=== PATIENT | female | born 1950 | race Caucasian/White ===

== ENCOUNTER 2016-09-23 05:41 | Inpatient (IN) | payer OTHER ==
--- NOTE | 2016-09-16 12:30 | PAT Medication Instructions ---
Service Date Sep 16, 2016. Current Home Medication List Aspirin (Aspirin Ec), 81 MG PO QAM Atorvastatin (Lipitor), 10 MG PO HS Fish Oil (Jeffers-3), 1 CAP PO QAM Multivitamin (Multivitamin), 1 TAB PO QAM Ranitidine (Zantac), 150 MG PO PRN PRN for ACID REFLUX Medication Instructions For Your Scheduled Surgery - Hold the following medications 1 week prior to surgery: Fish Oil (Jeffers-3), 1 CAP PO QAM - Hold the following medications the morning of surgery: Multivitamin (Multivitamin), 1 TAB PO QAM - Take the following medications the morning of surgery with a sip of water OTHERWISE NOTHING TO EAT OR DRINK AFTER MIDNIGHT: Aspirin (Aspirin Ec), 81 MG PO QAM Ranitidine (Zantac), 150 MG PO PRN PRN for ACID REFLUX - Take the following medications as scheduled the night before surgery: Atorvastatin (Lipitor), 10 MG PO HS If you have any questions please call us at [phone] or [phone] or [phone]
[2016-09-16 12:32] LABS: URINE APPEARANCE CLEAR (CLEAR); URINE BILIRUBIN NEG (NEG); URINE COLOR YELLOW; URINE NITRITE NEG (NEG); URINE PH 5.5 (4.5-7.5); UROBILINOGEN NEG (NEG)
[2016-09-16 12:33] LABS: MANUAL MICROSCOPIC REQUIRED? NO; REVIEW REQ? NO
[2016-09-16 12:33] LABS: BASO % 0.6 %; BASO ABS # 0.03 K/uL (0-0.2); COMPLETE YES; HEMATOCRIT 42.6 % (37-47); LYMPH % 32.9 %; LYMPH ABS # 1.71 K/uL (1.2-3.4); MEAN CELL VOLUME 95.1 fL (80-100); MEAN CORPUSCULAR HEMOGLOBIN 32.6 pg (25-34); MEAN CORPUSCULAR HGB CONC 34.3 g/dl (32-36); MEAN PLATELET VOLUME 10.2 fL (7.4-10.4); MONO % 7.9 %; NEUT % 53.6 %; PLATELET COUNT 310 K/uL (130-400); RED BLOOD COUNT 4.48 M/uL (4.2-5.4); WHITE BLOOD COUNT 5.19 K/uL (4.8-10.8)
[2016-09-16 12:41] LABS: PROTHROMBIN TIME (PATIENT) 10.6 SECONDS (9.0-12.0)
[2016-09-16 12:50] LABS: POTASSIUM 4.4 mmol/L (3.5-5.1)
--- NOTE | 2016-09-16 13:11 | DIAGNOSTIC IMAGING REPORT ---
CHEST 2 VIEWS ROUTINE CLINICAL HISTORY: Preoperative chest COMPARISON STUDY: No previous studies for comparison. FINDINGS: There is a calcified granuloma at the left lung base. There is minimal left basilar atelectasis. There are bilateral axillary calcifications. The heart is normal in size. There is no failure. There are no pleural effusions. There is no focal pulmonary consolidation.[ IMPRESSION: No active disease in the chest. Electronically signed by: Jason Sosa M.D. 09/16/2016 1:10 PM Dictated Date/Time: 09/16/2016 1:09 PM
--- NOTE | 2016-09-22 19:06 | HISTORY & PHYSICAL EXAMINATION ---
DATE OF ADMISSION: 09/23/2016 HISTORY OF PRESENT ILLNESS: The patient presents as a very pleasant 66-year-old white female with complaints of ongoing pain, attributable to her left knee. She presents for left total knee arthroplasty. She has failed attempts at conservative management including physical therapy, anti-inflammatories, relative rest, activity modification, viscosupplementation, corticosteroid injections, presents for total knee arthroplasty after failing all other attempts at conservative management. The patient understands the risks and complications and elects to proceed forward with left total knee arthroplasty. She is a 66-inch, 180-pound white female and 66 years of age. PAST MEDICAL HISTORY: Significant for hypercholesterolemia, osteoarthritis of the spine, acid reflux. Otherwise unremarkable. See history of present illness for pertinent positives. FAMILY HISTORY: Otherwise unremarkable and noncontributory. SOCIAL HISTORY: The patient denies history of smoking, alcohol use or recreational drug use. The patient does relate quitting smoking 1 year prior. PAST SURGICAL HISTORY: Significant for tubal ligation, right knee meniscal repair. ALLERGIES: None. MEDICATIONS: Include Lipitor 20 mg p.o. daily, multivitamin, aspirin 81 mg p.o. daily. PHYSICAL EXAMINATION: GENERAL: Reveals a very pleasant 66-year-old white female who presents with the above complaints of ongoing pain, attributable to her left knee. She has failed attempts at conservative management. She previously underwent arthroscopy 1 year prior for partial meniscectomy. She has complaints of ongoing pain about her knee which has been nonresponsive. X-ray revealed there to be evidence of progressive DJD. She has failed attempts at conservative management and presents for total knee arthroplasty. HEENT: Otherwise unremarkable, atraumatic, normocephalic. HEART: Regular at 70 beats per minute. No murmurs noted. LUNGS: Clear. No rales, rhonchi, or wheezes noted. ABDOMEN: Soft, nontender, nondistended. Bowel sounds are present in all 4 quadrants. RECTAL: No rectal examination was performed. MUSCULOSKELETAL: She had left knee degenerative joint disease. PLAN: Left total knee arthroplasty, postoperative pain management, DVT prophylaxis, antibiotics as necessary.
[~2016-09-23] VITALS: Ht 170.2 cm; Wt 88.5 kg
[2016-09-23] VITALS (10 sets, daily range): BP systolic 95–132; BP diastolic 64–94; PULSE 61–93; TEMP 36.4–36.7; O2SAT 88–97; Ht 170.2 cm; Wt 88.5 kg
[~2016-09-23 05:41] MED LIST: ASPI81TA28 PO; ATOR10TA82 PO; MULT-506 PO; OMEG10007 PO; ZNTT/150 PO
[2016-09-23] MEDS ORDERED: CeleBREX 200 MG CAP PO SCH (06:00)
[2016-09-23] MEDS ORDERED: FAMOTIDINE 20 MG TAB PO SCH (06:00)
[2016-09-23] MEDS ORDERED: DEXAMETHASONE 4 MG TAB PO SCH (06:00)
[2016-09-23] MEDS ORDERED: GABAPENTIN 300 MG CAP PO SCH (06:00)
[2016-09-23] MEDS ORDERED: CEFAZOLIN 2000 MG/60 ML D5W 60 ML IV SCH (06:00)
[2016-09-23] MEDS ORDERED: METOCLOPRAMIDE HCL 10 MG TAB PO SCH (06:00)
[2016-09-23] MEDS ORDERED: ROPIVACAINE 5MG/ML 30 ML 150 MG, BUPIVACAINE/EPINEPHR 0.5% MPF 30 ML, KETOROLAC TROMETH... INFIL SCH ×7 (06:00)
[2016-09-23] MEDS ORDERED: PREGABALIN 75 MG CAP PO SCH (06:00)
[2016-09-23] MEDS ORDERED: LACTATED RINGER'S 1000ML 1,000 ML IV SCH (06:00)
[2016-09-23] MEDS ORDERED: ACETAMINOPHEN 500 MG TAB PO SCH (06:00)
[2016-09-23] MEDS ORDERED: LACTATED RINGER'S 1000ML 500 ML IV ONE (06:00)
[2016-09-23] MEDS ORDERED: LACTATED RINGER'S 1000ML IV SCH (06:00)
[2016-09-23] MEDS ORDERED: BUPIVACAINE 0.5 % 5 MG/1 ML PF 10ML VIAL ONE (06:48)
--- NOTE | 2016-09-23 06:52 | History & Physical Bridge Note ---
H&P Re-Evaluation Bridge Note: I have examined the patient, reviewed the History & Physical and in the interval since the performance of the History & Physical I have noted the following changes of clinical significance: No changes noted
[2016-09-23] MEDS ORDERED: ONDANSETRON INJ 2 MG/ML 2 ML VIAL ONE (06:53)
[2016-09-23] MEDS ORDERED: MIDAZOLAM HCL 1 MG/ML 2ML VIAL ONE (06:53)
[2016-09-23] MEDS ORDERED: FENTANYL CITRATE INJ 50 MCG/1 ML 2 ML VIAL ONE (06:53)
[2016-09-23] MEDS ORDERED: PROPOFOL IV EMULSION 10 MG/ML 20 ML VIAL IV ONE (06:53)
[2016-09-23] MEDS ORDERED: ORTHO JOINT ANESTHETIC ONE (07:12)
[2016-09-23] MEDS ORDERED: POVIDONE-IODINE OP SOLN 30 ML BTL ONE (07:12)
[2016-09-23] MEDS ORDERED: BACITRACIN 50000 UNIT VIAL ONE (07:13)
[2016-09-23] MEDS: TRANEXAMIC ACID INJ 1,000 MG in SODIUM CHLORIDE 0.9% 100ML 100 ML IV SCH ×2 (07:43→12:52)
[2016-09-23] MEDS ORDERED: ATROPINE SULFATE 0.1 MG/ML 5ML SYR IV PRN (08:00)
[2016-09-23] MEDS ORDERED: FENTANYL CITRATE INJ 50 MCG/1 ML 2 ML VIAL IV PRN (08:00)
[2016-09-23] MEDS ORDERED: EpHEDrine SULFATE INJ 50 MG/ML AMP IV PRN (08:00)
[2016-09-23] MEDS ORDERED: ONDANSETRON INJ 2 MG/ML 2 ML VIAL IV PRN (08:00)
[2016-09-23] MEDS ORDERED: MoRPHine SULFATE 10 MG/ML CARP/VIAL IV PRN ×2 (08:00→12:30)
[2016-09-23] MEDS ORDERED: MEPERIDINE HCL 25 MG/ML CARP IV PRN (08:00)
[2016-09-23] MEDS ORDERED: PHENYLEPHRINE HCL INJ 10 MG/ML VIAL ONE (08:16)
--- NOTE | 2016-09-23 08:58 | [facility] Post Operative Brief Note ---
Immediate Operative Summary Operative Date Sep 23, 2016. Pre-Operative Diagnosis LEFT KNEE JOINT DEGENERATIVE JOINT DISEASE Post-Operative Diagnosis SAME PREOP Procedure(s) Performed LEFT TOTAL KNEE ARTHROPLASTY Surgeon DR. JAIMES Malt Specifications Control Assistant Surgeon(s) NATE JULES PA-C Estimated Blood Loss 5 cc Findings severe djd lt knee Specimens A: LEFT KNEE BONE AND TISSUE Complication(s) None Disposition Recovery Room / PACU
--- NOTE | 2016-09-23 09:26 | OPERATIVE REPORT ---
DATE OF OPERATION: 09/23/2016 PREOPERATIVE DIAGNOSIS: Severe end-stage tricompartmental degenerative joint disease left knee. POSTOPERATIVE DIAGNOSIS: Same. PROCEDURE: Left total knee arthroplasty utilizing Gonzales \T\ Nephew nonblock Journey II total knee arthroplasty size 6 femur, 5 tibia, 9 poly, 32 oval patella. SURGEON: Dr. Jimenez. DRAFTER APPRENTICE: Presley Craven PA-C who was necessary for prepping, draping, retraction, wound closure of deep fascia, subQ and skin and was necessary for the case. ESTIMATED BLOOD LOSS: 5 mL. COMPLICATIONS: None. HISTORY OF PRESENT ILLNESS: The patient presents as a very pleasant 66-year-old white female with the above complaints. She has been nonresponsive to conservative therapy and after thorough discussion regarding risks, complications, failing attempts at viscosupplementation, corticosteroid injections, relative rest, activity modification decision has been made to proceed forward with total knee arthroplasty. OPERATION AND FINDINGS: PROCEDURE: The patient was properly prepped and draped in supine position for total knee arthroplasty after identifying the appropriate surgical site. An anterior midline incision was made through the subcutaneous tissues down to the region of the extensor mechanism. A medial parapatellar incision was subsequently made. Meticulous hemostasis was obtained and performed at all times. The patella having been subluxed lateralward, medial and lateral meniscal remnants were excised. The patellar cut was then initially made and was sized to the appropriate size. After subluxing the tibia forward the appropriate meniscal fragments having been removed the distal femur was then cut first utilizing a Gonzales \T\ Nephew block. The distal femoral cuts and chamfer cuts were all made under direct visualization and the proximal tibial osteotomy cut was also made utilizing Gonzales \T\ Nephew blocks and checked with an extramedullary guide. The appropriate trial components on the femur and tibia were placed. Appropriate trial spacers were used to check flexion and extension gaps. With flexion and extension gaps being equal, the components were then subsequently after thorough irrigation and debridement lavage components were then subsequently cemented in the following order: femur, tibia and patella. Exparel was used for intraoperative anesthesia, the medial parapatellar incision was closed utilizing #1 Vicryl, subQ was closed with 2-0 Vicryl, skin was closed with skin clips. A sterile compression dressing was placed. The patient was taken to recovery room in stable condition. No complications. Due to the complex nature of the procedure, the entire surgery was performed with the operational assistance of Presley Craven PA-C. The resident programs assistant, under direct supervision, was involved in the actual performance of all aspects of the surgical procedure including hemostasis, tissue retraction and incision, instrument management, patient positioning, and wound closure. I attest to the content of the Intraoperative Record and any orders documented therein. Any exceptio ns are noted below.
[2016-09-23] MEDS ORDERED: ZOLPIDEM TARTRATE 5 MG TAB PO PRN (09:45)
[2016-09-23] MEDS ORDERED: MAGNESIUM HYDROXIDE SUSP 30 ML UDC PO PRN (09:45)
[2016-09-23] MEDS ORDERED: BISACODYL 10 MG SUPP PR PRN (09:45)
[2016-09-23] MEDS ORDERED: MoRPHine SULFATE 2 MG/ML CARP IV PRN ×2 (09:45→12:30)
[2016-09-23] MEDS ORDERED: ALUMINUM/MAGNESIUM/SIMETH (MAALOX MAX) 30 ML UDC PO PRN (09:45)
[2016-09-23] MEDS ORDERED: OXYCODONE HCL IR 5 MG TAB (IMMEDIATE RELEASE) PO PRN (09:45)
[2016-09-23] MEDS ORDERED: DiphenhydrAMINE HCL 50 MG/ML VIAL IV PRN (09:45)
--- NOTE | 2016-09-23 10:27 | Anesthesiology Progress Note ---
Anesthesia Post Op Note Date & Time Sep 23, 2016 at 10:27 Vital Signs Pain Intensity: 0 Vital Signs Past 12 Hours Date Time Temp Pulse Resp B/P Pulse Ox O2 Delivery O2 Flow Rate FiO2 09/23/16 10:20 84 18 102/74 92 Nasal Cannula 2 09/23/16 10:10 88 15 119/76 92 Nasal Cannula 2 09/23/16 10:00 86 14 116/83 92 Nasal Cannula 2 09/23/16 09:50 82 13 105/71 93 Nasal Cannula 2 09/23/16 09:41 36.4 89 16 110/78 94 Nasal Cannula 2 09/23/16 06:46 36.7 85 20 132/94 93 Room Air Notes Mental Status: alert / awake / arousable, participated in evaluation Pt Amnestic to Procedure: Yes Nausea / Vomiting: adequately controlled Pain: adequately controlled Airway Patency, RR, SpO2: stable & adequate BP & HR: stable & adequate Hydration State: stable & adequate Neuraxial Anesthesia: was administered, sensory block is resolving Anesthetic Complications: no major complications apparent
--- NOTE | 2016-09-23 10:36 | DIAGNOSTIC IMAGING REPORT ---
LEFT KNEE 1 OR 2 VIEWS ROUTINE CLINICAL HISTORY: Degenerative arthritis. Postoperative study COMPARISON: None. DISCUSSION: There are postsurgical changes of total left knee arthroplasty and patellar resurfacing. No acute fractures or subluxations are visualized. There is air within soft tissues consistent with recent surgery. There are overlying surgical drains. IMPRESSION: Postsurgical changes of a total left knee arthroplasty Electronically signed by: Jason Sosa M.D. 09/23/2016 10:35 AM Dictated Date/Time: 09/23/2016 10:34 AM
[2016-09-23] MEDS ORDERED: MoRPHine SULFATE 4 MG/ML 1 ML CARP\\VIAL IV PRN (12:30)
[2016-09-23] MEDS: FERROUS GLUCONATE 324 MG TAB PO SCH ×2 (12:51→17:47)
[2016-09-23] MEDS: D5W AND 1/2NSS + 20MEQ KCL 1,000 ML IV SCH ×2 (12:52→23:10)
[2016-09-23] MEDS: KETOROLAC TROMETHAMINE 15 MG/ML VIAL IV. SCH ×3 (12:54→23:22)
[2016-09-23] MEDS: ACETAMINOPHEN 500 MG TAB PO SCH ×2 (13:44→20:39)
[2016-09-23] MEDS: CEFAZOLIN IV 2,000 MG in DEXTROSE 5% 50ML 50 ML IV SCH ×2 (17:49→23:22)
[2016-09-23] MEDS: ATORVASTATIN 10 MG TAB PO SCH (20:37)
[2016-09-23] MEDS: DOCUSATE SODIUM 100 MG CAP PO SCH (20:37)
[2016-09-23] MEDS: SENNA 8.6 MG TAB PO SCH (20:37)
[2016-09-23] MEDS: ASPIRIN 81 MG ECTAB PO SCH (20:38)
[2016-09-23] MEDS: OXYCODONE HCL 10 MG TABCR (OXYCONTIN) PO SCH ×2 (22:33→23:13)
[2016-09-24 03:30] VITALS: BP 100/64; PULSE 86; TEMP 36.4; O2SAT 88
[2016-09-24 03:34] VITALS: O2SAT 94
[2016-09-24] MEDS: ACETAMINOPHEN 500 MG TAB PO SCH ×2 (05:55→14:27)
[2016-09-24] MEDS: KETOROLAC TROMETHAMINE 15 MG/ML VIAL IV. SCH ×3 (05:55→20:10)
[2016-09-24 06:45] LABS: BUN/CREATININE RATIO 16.7 (10-20); CALCIUM 8.7 mg/dl (8.5-10.1); CREATININE 1.1 mg/dl (0.60-1.20); POTASSIUM 4.4 mmol/L (3.5-5.1)
[2016-09-24 07:08] VITALS: BP 97/67; PULSE 63; TEMP 36.5; O2SAT 93
--- NOTE | 2016-09-24 07:22 | Orthopedic Progress Note ---
Orthopedic Progress Note Date of Service Sep 24, 2016. Subjective Post OP Day: 1 Reports: feeling well, pain controlled w PO medications, Denies: SOB, calf pain , chest pain, complaints, light headedness, nausea / vomiting Objective calves soft nontender, N/V intact, capillary refill less than 2 sec., dressing C /D/I, A&O x3, toes mobile, hemovac drainage (200cc/8 hours ) Date Time Temp Pulse Resp B/P Pulse Ox O2 Delivery O2 Flow Rate FiO2 09/24/16 07:08 36.5 63 18 97/67 93 Nasal Cannula 2.0 09/24/16 03:34 94 Nasal Cannula 2.0 09/24/16 03:30 36.4 86 16 100/64 88 Room Air 09/23/16 23:30 Room Air 09/23/16 22:53 97 Nasal Cannula 2.0 09/23/16 22:51 36.5 61 14 103/65 88 Room Air 09/23/16 18:51 36.6 78 18 101/69 96 Room Air 09/23/16 16:00 94 Nasal Cannula 2.0 09/23/16 14:45 36.5 75 19 95/65 94 Nasal Cannula 2.0 09/23/16 13:35 62 18 104/71 92 Nasal Cannula 2.0 09/23/16 12:43 93 19 107/71 93 Nasal Cannula 2.0 09/23/16 12:17 36.4 78 19 99/66 93 Nasal Cannula 2.0 09/23/16 11:40 36.6 74 16 107/64 93 Nasal Cannula 2.0 09/23/16 11:40 93 Nasal Cannula 2.0 09/23/16 11:40 93 Nasal Cannula 2.0 09/23/16 11:30 36.5 86 14 104/72 94 Nasal Cannula 2 09/23/16 11:15 88 12 99/65 94 Nasal Cannula 2 09/23/16 11:00 89 22 98/65 93 Nasal Cannula 2 09/23/16 10:45 87 12 101/69 92 Nasal Cannula 2 09/23/16 10:30 36.5 87 20 98/69 92 Nasal Cannula 2 09/23/16 10:20 84 18 102/74 92 Nasal Cannula 2 09/23/16 10:10 88 15 119/76 92 Nasal Cannula 2 09/23/16 10:00 86 14 116/83 92 Nasal Cannula 2 09/23/16 09:50 82 13 105/71 93 Nasal Cannula 2 09/23/16 09:41 36.4 89 16 110/78 94 Nasal Cannula 2 Laboratory Results 24 Hours: Test 09/24/16 05:56 Assessment & Plan Assessment: POD #1 s/p Left TKA -DVT proph with MAURO/SCD/ASA -pain control -PT/OT -plan for d/c home likely tomorrow with OPPT @ [facility] Discharge Planning Discharge Planning: home with oppt DVT Prophylaxis: TEDs, SCDs, ASA Therapy: Physical Therapy
--- NOTE | 2016-09-24 07:26 | Discharge Instructions ---
Discharge Instructions Date of Service Sep 24, 2016. Admission Reason for Admission: Left Knee Osteoarthritis Discharge Discharge Diagnosis / Problem: left knee total knee replacement Discharge Goals Goal(s): Decrease discomfort, Improve function, Increase independence Activity Recommendations Activity Limitations: as noted below Weightbearing Status: Left weightbearing (as tolerated) . Instructions / Follow-Up Instructions / Follow-Up ACTIVITY RECOMMENDATIONS: SELF CARE INSTRUCTIONS AFTER TOTAL KNEE REPLACEMENT A. You may need to continue a physical therapy program after discharge from the hospital. There are several options available to you. Your doctor will assist you in selecting the best one for you. 1. An out-patient facility 2 to 3 times a week for therapy or home therapy. 2. Continue working on all exercises taught to you in the hospital. Your goals should be to increase bending of your knee to 90 degrees and beyond and to fully straighten your knee. B. You may progress at your own pace from walking with a walker or crutches to a cane; then to no assistive devices. C. Make walking a part of your daily routine. Be up as much as comfortable with rest periods throughout the day. Rest with leg elevation is very important. Use the ice wrap frequently for the first 3-4 weeks. D. There are no restrictions on activities. You may ride in a car, shop, participate in cdl service technician and all social activities. E. Wear the long elastic stockings (MAURO hose) 20 hours a day for 2 weeks after surgery. They can be removed several times a day for laundering and for a bath. F. You may shower, no tub baths until cleared by your doctor. SPECIAL CARE INSTRUCTIONS: VERY IMPORTANT TO READ AND REVIEW A. There are a few signs you need to watch for after you are home. Call [facility] if you notice any of the followin. Increased severe knee pain. Some pain is expected especially when you exercise. 2. Increased swelling in your leg or knee; pain or swelling of the calf muscle in either lower leg. 3. Any fluid drainage from the incision. 4. Shortness of breath or chest pain. B. Please call [facility] at if you have any concerns or questions about your operation or recovery. The doctor or his nurse will return your call promptly. C. You must take antibiotics before dental work, bladder, bowel or other surgery. Your doctor will provide you with a permanent care to carry describing this precaution. IMPORTANT: * REMEMBER TO TAKE ASPIRIN, 81 MG, TWICE DAILY FOR 4 WEEKS UNLESS OTHERWISE DIRECTED. THIS IS YOUR BLOOD THINNER. * HIGH RISK PATIENTS MAY BE PRESCRIBED A STRONGER BLOOD THINNER. THIS WILL BE PROVIDED AT DISCHARGE. * CALL IF INCREASED PAIN, REDNESS, DRAINAGE OR FEVER GREATER THAT 101. * WEAR MAURO HOSE 20 HOURS PER DAY FOR 2 WEEKS. * YOU MAY HAVE A LARGE BAND-AID LIKE DRESSING (SILVERON). THIS WILL REMAIN ON YOUR INCISION FOR 7 DAYS, THEN CAN BE REMOVED. IF INCISION IS LEAKING THROUGH DRESSING, CALL THE OFFICE . FOLLOW UP VISIT: If appointment is not already scheduled: Please call [facility] to make a follow-up appointment for 2 weeks after your surgery at . Current Hospital Diet Patient's current hospital diet: Regular Diet Discharge Diet Recommended Diet: Regular Diet Procedures Procedures Performed: LEFT TOTAL KNEE ARTHROPLASTY Pending Studies Studies pending at discharge: no Medical Emergencies . Who to Call and When: Medical Emergencies: If at any time you feel your situation is an emergency, please call [phone] immediately. . Non-Emergent Contact Non-Emergency issues call your: Primary Care Provider, Surgeon . "Provider Documentation" section prepared by Godwin Kennedy. VTE Core Measure Inpt VTE Proph given/why not?: Other Anticoagulation (ASA 81mg po bid x 1 month ), Regino Ferreira, SCD's [place] Drug Monitoring Program Search Results: patient reviewed within database, no issues identified
[2016-09-24 07:29] LABS: HEMATOCRIT 36.5 % (37-47); MEAN CELL VOLUME 93.4 fL (80-100); MEAN CORPUSCULAR HEMOGLOBIN 31.2 pg (25-34); MEAN CORPUSCULAR HGB CONC 33.4 g/dl (32-36); MEAN PLATELET VOLUME 10.2 fL (7.4-10.4); PLATELET COUNT 273 K/uL (130-400); RED BLOOD COUNT 3.91 M/uL (4.2-5.4); WHITE BLOOD COUNT 14.02 K/uL (4.8-10.8)
[2016-09-24] MEDS: MULTIVITAMIN TAB PO SCH (08:58)
[2016-09-24] MEDS: DOCUSATE SODIUM 100 MG CAP PO SCH ×2 (08:58→20:33)
[2016-09-24] MEDS: ASPIRIN 81 MG ECTAB PO SCH ×2 (08:58→20:33)
[2016-09-24] MEDS: FERROUS GLUCONATE 324 MG TAB PO SCH ×3 (08:58→20:10)
[2016-09-24] MEDS: PANTOprazole SOD 40 MG TAB PO SCH (08:59)
[2016-09-24] MEDS: D5W AND 1/2NSS + 20MEQ KCL 1,000 ML IV SCH (09:00)
[2016-09-24] MEDS: OXYCODONE HCL 10 MG TABCR (OXYCONTIN) PO SCH ×2 (09:01→20:34)
--- NOTE | 2016-09-24 10:45 | Anesthesiology Progress Note ---
Anesthesia Post Op Note Date & Time Sep 24, 2016 at 10:45 Vital Signs Vital Signs Past 12 Hours Date Time Temp Pulse Resp B/P Pulse Ox O2 Delivery O2 Flow Rate FiO2 09/24/16 07:30 Room Air 09/24/16 07:08 36.5 63 18 97/67 93 Nasal Cannula 2.0 09/24/16 03:34 94 Nasal Cannula 2.0 09/24/16 03:30 36.4 86 16 100/64 88 Room Air 09/23/16 23:30 Room Air 09/23/16 22:53 97 Nasal Cannula 2.0 09/23/16 22:51 36.5 61 14 103/65 88 Room Air Notes Mental Status: alert / awake / arousable, participated in evaluation Pt Amnestic to Procedure: Yes Nausea / Vomiting: adequately controlled Pain: adequately controlled Airway Patency, RR, SpO2: stable & adequate BP & HR: stable & adequate Hydration State: stable & adequate Neuraxial Anesthesia: was administered, sensory block resolved Anesthetic Complications: no major complications apparent
[2016-09-24 11:43] VITALS: BP 110/74
[2016-09-24 15:03] VITALS: BP 108/70; PULSE 80; TEMP 36.7; O2SAT 93
[2016-09-24] MEDS: ONDANSETRON INJ 2 MG/ML 2 ML VIAL IV PRN (17:14)
[2016-09-24] MEDS: ATORVASTATIN 10 MG TAB PO SCH (20:33)
[2016-09-24] MEDS: SENNA 8.6 MG TAB PO SCH (20:33)
[2016-09-24 23:03] VITALS: BP 94/61; PULSE 86; TEMP 36.8; O2SAT 93
[2016-09-25] MEDS: KETOROLAC TROMETHAMINE 15 MG/ML VIAL IV. SCH ×2 (00:01→05:30)
[2016-09-25] MEDS: ACETAMINOPHEN 500 MG TAB PO SCH ×3 (00:01→13:26)
[2016-09-25 05:35] VITALS: BP 102/62; PULSE 85
[2016-09-25 06:34] VITALS: BP 107/70; PULSE 86; TEMP 36.7; O2SAT 93
[2016-09-25] MEDS: FERROUS GLUCONATE 324 MG TAB PO SCH ×3 (07:24→17:40)
[2016-09-25] MEDS: DOCUSATE SODIUM 100 MG CAP PO SCH ×2 (07:24→21:00)
[2016-09-25] MEDS: ASPIRIN 81 MG ECTAB PO SCH ×2 (07:25→21:00)
[2016-09-25] MEDS: MULTIVITAMIN TAB PO SCH (07:25)
[2016-09-25] MEDS: OXYCODONE HCL 10 MG TABCR (OXYCONTIN) PO SCH (07:25)
[2016-09-25] MEDS: PANTOprazole SOD 40 MG TAB PO SCH (07:26)
--- NOTE | 2016-09-25 07:59 | Orthopedic Progress Note ---
Orthopedic Progress Note Date of Service Sep 25, 2016. Subjective Post OP Day: 2 Reports: feeling well, pain controlled w PO medications, Denies: SOB, calf pain , chest pain, complaints, light headedness, nausea / vomiting Objective calves soft nontender, N/V intact, capillary refill less than 2 sec., incision C /D/I, A&O x3, toes mobile Date Time Temp Pulse Resp B/P Pulse Ox O2 Delivery O2 Flow Rate FiO2 09/25/16 07:31 Room Air 09/25/16 06:34 36.7 86 16 107/70 93 Room Air 09/25/16 05:35 85 102/62 09/25/16 00:15 Room Air 09/24/16 23:03 36.8 86 18 94/61 93 Room Air 09/24/16 16:30 Room Air 09/24/16 15:03 36.7 80 18 108/70 93 Room Air Assessment & Plan Assessment: POD #2 s/p Left TKA -DVT proph with MAURO/SCD/ASA -pain control -PT/OT -plan for d/c home likely today with OPPT @ [facility] Discharge Planning Discharge Planning: home with oppt DVT Prophylaxis: TEDs, SCDs, ASA Therapy: Physical Therapy
[2016-09-25] MEDS ORDERED: ASPEC81 PO (08:06)
[2016-09-25] MEDS ORDERED: OXYSR10 PO (08:06)
[2016-09-25] MEDS ORDERED: ONDA8TAB6 PO (08:06)
[2016-09-25] MEDS ORDERED: ACET-1138 PO (08:06)
[2016-09-25] MEDS ORDERED: RXC5 PO (08:06)
[2016-09-25] MEDS: ONDANSETRON INJ 2 MG/ML 2 ML VIAL IV PRN ×2 (08:08→14:55)
[2016-09-25 09:19] VITALS: BP 118/75; PULSE 78; O2SAT 93
[2016-09-25 15:31] VITALS: BP 113/79; PULSE 78; TEMP 36.7; O2SAT 90
[2016-09-25] MEDS ORDERED: NURSING VERBAL MED ORDER ONE (16:45)
[2016-09-25] MEDS ORDERED: PROMETHAZINE HCL INJ 25 MG in SODIUM CHLORIDE 0.9% 50ML 50 ML IV ONE (17:15)
[2016-09-25] MEDS: ATORVASTATIN 10 MG TAB PO SCH (21:00)
[2016-09-25] MEDS: SENNA 8.6 MG TAB PO SCH (21:00)
[2016-09-25] MEDS: HYDROCODONE/ACETAMOPHEN 5/325MG TAB PO PRN (21:53)
[2016-09-25 23:11] VITALS: BP 103/67; PULSE 64; TEMP 37.1; O2SAT 96
[2016-09-26] MEDS: HYDROCODONE/ACETAMOPHEN 5/325MG TAB PO PRN ×2 (02:35→08:43)
--- NOTE | 2016-09-26 07:28 | Orthopedic Progress Note ---
Orthopedic Progress Note Date of Service Sep 26, 2016. Subjective Post OP Day: 3 Reports: nausea / vomiting, pain controlled w PO medications, Denies: SOB, calf pain, chest pain, light headedness Additional Notes: patients states pain in her knee is well controlled, only complaint is that she has a sudden onset of headache and then gets nauseous. she feels like this happened the last time she had a spinal. Objective Date Time Temp Pulse Resp B/P Pulse Ox O2 Delivery O2 Flow Rate FiO2 09/26/16 00:15 Room Air 09/25/16 23:11 37.1 64 14 103/67 96 Room Air 09/25/16 15:31 36.7 78 18 113/79 90 Room Air 09/25/16 15:00 Room Air 09/25/16 09:19 78 93 09/25/16 07:31 Room Air Assessment & Plan Assessment: POD #3 s/p Left TKA -DVT proph with MAURO/SCD/ASA -pain control -PT/OT -plan for d/c home likely today with OPPT @ [facility] will discuss headaches with anesthesia, if these resolve she will be stable for discharge. also switched from her oxycontin/oxycodone to determine if this was the cause of her nausea. Discharge Planning Discharge Planning: home with oppt DVT Prophylaxis: TEDs, SCDs, ASA Therapy: Physical Therapy
[2016-09-26] MEDS ORDERED: HYDR-5688 PO (07:32)
[2016-09-26 07:57] VITALS: BP 122/78; PULSE 96; TEMP 36.7; O2SAT 94
[2016-09-26] MEDS: FERROUS GLUCONATE 324 MG TAB PO SCH (08:30)
[2016-09-26] MEDS: ASPIRIN 81 MG ECTAB PO SCH (08:43)
[2016-09-26] MEDS: PANTOprazole SOD 40 MG TAB PO SCH (08:44)
[2016-09-26] MEDS ORDERED: BUTALBITAL/ACETAMIN/CAFFEINE TAB PO PRN (09:00)
[2016-09-26] MEDS: DOCUSATE SODIUM 100 MG CAP PO SCH (09:00)
[2016-09-26] MEDS: MULTIVITAMIN TAB PO SCH (09:00)
[2016-09-26 09:18] VITALS: O2SAT 94
[2016-09-26] MEDS ORDERED: SUMATRIPTAN SUCCINATE 25 MG TAB PO ONE (10:00)
[2016-09-26 10:35] VITALS: BP 122/78; PULSE 96; TEMP 36.7; O2SAT 94
--- NOTE | 2016-09-26 10:45 | Medical Consult ---
Consultation Date of Consultation: Sep 26, 2016. Attending Physician: Dano Jimenez D.O. Reason for Consultation: Post op headache and nausea History of Present Illness This is a 66 y/o female with a history of HLD and GERD who presents s/p left TKA with Dr. Jimenez, POD #2, with post op headache and nausea. The patient complains of a 10 out of 10 sharp and throbbing headache located across her forehead that began yesterday morning. Since the headache onset. She has received oxycodone, [place] and extra strength Tylenol for her headache and knee pain, however, this has not helped to relieve her headache. The patient is sensitive to light. The patient states that many years ago after the last time she had a spinal, she experienced a similar headache that lasted for 3 days. The patient does have history of migraines as well that are usually aborted with extra strength Tylenol. The patient states that when the pain is severe, or when she sits up for prolonged periods of time she becomes nauseous with vomiting. She therefore has no appetite. The patient denies any changes in vision. The patient denies fevers, chills, sweats, chest pain, palpitations, claudication, cough, wheezing, shortness of breath, abdominal pain, dysuria, hematuria, urinary retention, paralysis, weakness, numbness and tingling. Past Medical/Surgical History HLD GERD Family History ALS (amyotrophic lateral sclerosis) Diabetes mellitus Hypertension Lung cancer Myocardial infarction Social History Smoking Status: Former Smoker (quit 1 year ago) Smokeless Tobacco Use: No Alcohol Use: none Drug Use: none Marital Status: Housing Status: lives with family ( and son) Occupation Status: retired Allergies Coded Allergies: No Known Allergies (Unverified , 09/23/16) Current Inpatient Medications Current Inpatient Medications Medications (Trade) Dose Ordered Sig/[place] Route Start Time Stop Time Status Last Admin Dose Admin Atorvastatin Calcium (Lipitor Tab) 10 mg HS PO 09/23/16 21:00 10/23/16 20:59 09/24/16 20:33 10 MG Magnesium Hydroxide (Milk Of Magnesia Susp) 30 ml Q6H PRN PO 09/23/16 09:45 10/23/16 09:44 Bisacodyl (Dulcolax Supp) 10 mg DAILY PRN HI 09/23/16 09:45 10/23/16 09:44 Senna (Senokot Tab) 17.2 mg HS PO 09/23/16 21:00 10/23/16 20:59 09/24/16 20:33 17.2 MG Docusate Sodium (coLACE CAP) 100 mg BID PO 09/23/16 21:00 10/23/16 20:59 09/25/16 07:24 100 MG Diphenhydramine HCl (Benadryl Inj) 25 mg Q8H PRN IV 09/23/16 09:45 10/23/16 09:44 Al Hydrox/Mg Hydrox/Simethicone (Maalox Max Susp) 15 ml Q4H PRN PO 09/23/16 09:45 10/23/16 09:44 Zolpidem Tartrate (Ambien Tab) 5 mg HSZ PRN PO 09/23/16 09:45 10/23/16 09:44 Multivitamins (Multivitamin Tab) 1 tab QAM PO 09/24/16 09:00 10/24/16 08:59 09/25/16 07:25 1 TAB Ondansetron HCl (Zofran Inj) 4 mg Q6H PRN IV 09/23/16 09:45 10/23/16 09:44 09/25/16 14:55 4 MG Ferrous Gluconate (Ferrous Gluconate Tab) 324 mg TIDM PO 09/23/16 12:30 10/23/16 12:29 09/25/16 07:24 324 MG Pantoprazole Sodium (Protonix Tab) 40 mg QAM PO 09/24/16 09:00 10/24/16 08:59 09/26/16 08:44 40 MG Aspirin (Ecotrin Tab) 81 mg BID PO 09/23/16 21:00 10/23/16 20:59 09/26/16 08:43 81 MG Morphine Sulfate (MoRPHine SULFATE INJ) 2 mg Q4HWA PRN IV 09/23/16 12:30 10/07/16 12:29 Morphine Sulfate (MoRPHine SULFATE INJ) 4 mg Q4HWA PRN IV 09/23/16 12:30 10/07/16 12:29 Morphine Sulfate (MoRPHine SULFATE INJ) 6 mg Q4HWA PRN IV 09/23/16 12:30 10/07/16 12:29 Acetaminophen/ Hydrocodone Bitart ([place] 5/325 Tab) 1 tab Q6H PRN PO 09/25/16 17:00 10/09/16 16:59 09/26/16 08:43 1 TAB Acetaminophen/ Butalbital/ Caffeine (Fioricet Tab) 1 tab Q4H PRN PO 09/26/16 09:00 10/26/16 08:59 Review of Systems See HPI for pertinent positives and negatives. All other systems reviewed and negative. Physical Exam Date Time Temp Pulse Resp B/P Pulse Ox O2 Delivery O2 Flow Rate FiO2 09/26/16 09:18 94 Room Air 09/26/16 07:57 36.7 96 17 122/78 94 Room Air 09/26/16 00:15 Room Air 09/25/16 23:11 37.1 64 14 103/67 96 Room Air 09/25/16 15:31 36.7 78 18 113/79 90 Room Air 09/25/16 15:00 Room Air General Appearance: WD/WN, + mild distress (uncomfortable), + obese Head: normocephalic, atraumatic Eyes: normal inspection, PERRL, EOMI ENT: normal ENT inspection, hearing grossly normal, pharynx normal Neck: supple, no JVD, trachea midline Respiratory/Chest: lungs clear, normal breath sounds, no respiratory distress Cardiovascular: regular rate, rhythm, no gallop, no murmur Abdomen/GI: normal bowel sounds, non tender, soft Extremities/Musculoskelatal: no calf tenderness, normal capillary refill, no pedal edema Neurologic/Psych: alert, normal mood/affect, oriented x 3 Skin: normal color, warm/dry, no rash Assessment & Plan 66 y/o female with a history of HLD and GERD who presents s/p left TKA with Dr. Jimenez, POD #2, with post op headache and nausea. 10/10 frontal headache since yesterday morning with accompanying nausea and vomiting. Not eating well. Denies vision changes. H/o migraines that typically resolve with Tylenol. No relief with oral pain meds. -Pain management, DVT prophylaxis, and PT/OT as per primary team -Imitrex 25 mg PO x 1. [place] resolved after 1 dose. -Zofran 4 mg IV q6h prn nausea. Pt states not very nauseous currently. HLD -Continue Lipitor 10 mg PO qhs GERD -Continue Zantac 150 mg PO qd prn reflux Code Status -Level I, FULL RESUSCITATION STATUS Thank you for this consultation. Pt. is stable from a medical standpoint, we will sign off. Clear for discharge as per primary team. This chart was completed in part utilizing [employer] Voice Recognition software. Attempts were made to minimize the grammatical errors, random word insertions, pronoun errors and incomplete sentences. Any formal questions or concerns about the content, text or information contained within the body of this dictation should be directly addressed to the provider for clarification. I agree with PA assessment and plan and have personally seen and examined the pt Pt consulted for post anesthesia [place] and nausea Improved with imitrex given If persistent nausea please DC on zofran Thank you for your consultation
--- NOTE | 2016-09-29 16:56 | DISCHARGE SUMMARY ---
DISCHARGE DIAGNOSIS: Degenerative joint disease, left knee. SECONDARY DIAGNOSES: Hyperlipidemia, gastroesophageal reflux disease. CONSULTS: Concetta Leung PA-C/Jean Cralos Long DO. COMPLICATIONS: None. PROCEDURE: Left total knee arthroplasty performed by Dr. Jimenez on 09/23/2016. BRIEF HISTORY: As dictated in history and physical. HOSPITAL SUMMARY: The patient was admitted on the above date and had the above-noted surgery performed which she tolerated well. On her first postoperative day, she was feeling well and pain was controlled. She had no other complaints. Calves were soft, nontender, neurovascularly intact. Capillary refill was less than 2 seconds. Dressings clean, dry and intact. Toes were mobile. Vital signs were stable and the patient was afebrile. The patient was started on physical therapy protocol and continued on DVT prophylaxis and pain management. By her second postoperative day, the patient was feeling well and pain was controlled. Calves were soft, nontender. Neurovascularly intact. Incision was clean, dry and intact. Toes were mobile. Vital signs were stable. She was afebrile. Plans were for her to go home with outpatient PT. She was continued on her protocol. The patient was going to go home; however, developed headache, nausea, and vomiting late on postoperative day 2. The patient had related that she felt this was due to the spine and this had happened one other time many years ago. Vital signs were stable and she was afebrile. BP was 103/67, pulse was 64. Plans were to discuss the headaches with anesthesia and medicine consult was placed. The patient was seen by Concetta Leung who after seeing the patient, started her on a dose of Imitrex 25 mg p.o. x1. After receiving the dose, the patient had very good relief with the Imitrex. She was otherwise remaining stable medically and orthopedically and with the resolution of her headache and her nausea, it was felt that she could be discharged to home. DISCHARGE INSTRUCTIONS: The patient was discharged to home in satisfactory condition on 09/26/2016. DIET: Regular. ACTIVITY: Weightbearing as tolerated in left lower extremity. Follow TKA instruction sheets and special care instructions as noted and follow up with Dr. Jimenez in 2 weeks. The patient to call for appointment if one has not been made for you. DISCHARGE MEDICATIONS: Acetaminophen 1000 mg p.o. q. 8 hours, aspirin 81 mg p.o. b.i.d., [place] 5/325 1-2 tablets p.o. q. 4-6 hours p.r.n., Zofran 8 mg p.o. q. 8 hours p.r.n., OxyContin 10 mg p.o. q. 12 hours. Resume taking atorvastatin 10 mg p.o. at bedtime, multivitamin 1 tab p.o. q.a.m. and Zantac 150 mg p.o. p.r.n. acid reflux. Stop taking your once daily dosage of aspirin and once you are done taking the 30-day regimen of b.i.d., you may resume the once daily dosing. Stop taking fish oil caplets.
== END 2016-09-26 12:01 | disposition home or self-care (01) | DRG 470 ==
LOC: ENRESERVDT → ENRESERVTM → C.ACU 05:41 → C.3E 06:34
PROVIDERS: ADMIT Orthopaedic Surgery; ATTEND Orthopaedic Surgery
PROC: 0SRD0J9 Replacement of Left Knee Joint with Synthetic Substitute, Cemented, Open Approach (ICD-10-PCS; principal; 2016-09-23 08:00)
DX: M17.12 Unilateral primary osteoarthritis, left knee (principal); K21.9 Gastro-esophageal reflux disease without esophagitis; E78.00 Pure hypercholesterolemia, unspecified; R63.0 Anorexia; G43.909 Migraine, unspecified, not intractable, without status migrainosus; R11.0 Nausea; E66.9 Obesity, unspecified; M47.9 Spondylosis, unspecified; Z68.30 Body mass index [BMI] 30.0-30.9, adult; Z79.899 Other long term (current) drug therapy; Z87.891 Personal history of nicotine dependence; Z79.82 Long term (current) use of aspirin

== ENCOUNTER 2018-12-01 05:55 | Inpatient (IN) ==
--- NOTE | 2018-11-17 15:19 | PAT Medication Instructions ---
Medication Instructions Date of Service November 17, 2018 Home Medications Vitamin D3 1 cap PO QPM aspirin 81 mg PO QPM atorvastatin 10 mg PO PM calcium carbonate [Calcium 600] 600 mg PO QPM levothyroxine 75 mcg PO UD multivitamin 1 tab PO QPM omega 4-fsr-fem-fish oil [Fish Oil] 1 cap PO QPM ranitidine HCl [Zantac] 150 mg PO DAILY PRN Continue as directed levothyroxine 75 mcg PO UD STOP taking 2 weeks before surgery (or as soon as possible if surgery is within 2 weeks) omega 1-etg-qcj-fish oil [Fish Oil] 1 cap PO QPM DO NOT take the morning of surgery ranitidine HCl [Zantac] 150 mg PO DAILY PRN Take evening before surgery Vitamin D3 1 cap PO QPM atorvastatin 10 mg PO PM calcium carbonate [Calcium 600] 600 mg PO QPM multivitamin 1 tab PO QPM aspirin 81 mg PO QPM Other Notes If you have any questions please call us at [phone] or [phone] or [phone] or [phone]
--- NOTE | 2018-11-18 13:21 | Anesthesiology Consultation ---
Date of Service November 18, 2018 Assessment & Plan (1) Encounter for pre-operative examination: Chart Review Chart Review: Acceptable Risk for Surgery ( pending surgeon-ordered PCP clearance scheduled 11/25 (Miranda)) and Patient seen in Pre Admission Testing Teaching & Discussion Pre-Anesthesia Teaching/Discussion Notes: Instructed NPO after midnight before surgery,except medications with 15 cc of water. Medication instructions provided according to the PAT guidelines. History Surgery Operation Date: 12/01/18 11:15 Proposed Procedures p Right Total Shoulder Arthroplasty - Andrade Beckham MD Height/Weight Height: 5 ft 6 in Weight: 86.8 kg Allergies Allergy/AdvReac Type Severity Reaction Status Date / Time Azixect-Olg-Zct Reductase Allergy MYALGIAS/JOINT Verified 11/18/18 13:24 Inhibitor PAIN WITH STATIN (UNSURE WHICH ONE) Medications Home Medications Medication Instructions Recorded Confirmed Last Taken Vitamin D3 1 cap PO QPM 11/10/18 11/10/18 Unknown aspirin 81 mg PO QPM 11/10/18 11/10/18 Unknown atorvastatin 10 mg PO PM 11/10/18 11/10/18 Unknown calcium carbonate [Calcium 600] 600 mg PO QPM 11/10/18 11/10/18 Unknown levothyroxine 75 mcg PO UD 11/10/18 11/10/18 Unknown multivitamin 1 tab PO QPM 11/10/18 11/10/18 Unknown omega 2-fpy-nuu-fish oil [Fish Oil] 1 cap PO QPM 11/10/18 11/10/18 Unknown ranitidine HCl [Zantac] 150 mg PO DAILY PRN 11/10/18 11/10/18 Unknown Past Medical History Medical History GERD (gastroesophageal reflux disease) CONTROLLED Hyperlipidemia Hypothyroidism Osteoarthritis Exercise / Class Metabolic Activity III < 4 Walking/Shop/Light housework Past Family History Family History Son Family history of diabetes mellitus Mother Family history of diabetes mellitus Grandfather (Maternal) Family history of diabetes mellitus Past Surgical History Surgical History History of D&C History of ankle surgery RT History of tooth extraction History of total left knee replacement History of tubal ligation Past Anesthesia History No Family Hx of Anesthesia Complications and Other "Migraine" after knee replacement (denies being told a spinal headache occurred)- significantly improved after giving imitrex. History of PONV No Hx of PONV and Hx of Motion Sickness (OCCASIONAL) Social History Smoking Status: Former smoker tobacco type: cigarettes Do You Dip or Chew Tobacco: No Smoking End Date: QUIT 4+ YEARS AGO Hx Alcohol Use: Yes Alcohol type: beer alcohol intake frequency: holidays/special occasions only Hx Substance Use: No substance use type: does not use Review of Systems Patient denies chest pain, shortness of breath, cough, wheezing, palpitations. Physical Exam Vital Signs VITALS BP 110/74 P 93 TEMP 98.3 SP02 93%RA RESP 16 PHYSICAL Full neck and c-spine range of motion. Full TMJ range of motion. TMD 3 finger breaths Mallampati Score 2 Dentition: missing molars, upper front cap Lungs: clear throughout to auscultation Cardiac: regular rate and rhythm, no murmurs noted Spine: normal Carotid arteries: negative bruit Extremities: no edema Testing Laboratory Results 11/18/18 13:39 11/18/18 13:39 11/18/18 11/18/18 11/18/18 13:39 13:39 13:39 PT 10.4 INR 1.0 APTT 24.8 Hemoglobin A1c 6.2 H Urine Color Yellow Urine Appearance Clear Urine pH 5.5 Ur Specific [place] 1.018 Urine Protein Negative Urine Glucose (UA) Negative Urine Ketones Negative Urine Nitrite Negative Ur Leukocyte Esterase Negative 11/18/18 T&S A+Ab- Electrocardiogram Date: 11/18/18 SR with PACs at 85bpm. Chest X-Ray Date: 11/18/18 Findings: + NAD
[2018-11-18 14:12] LABS: Basophils # (auto) 0.03 K/uL (0-0.2); Basophils % (auto) 0.5 %; Eosinophils # (auto) 0.33 K/uL (0-0.5); Eosinophils % (auto) 5.6 %; Hematocrit (blood only) 41.7 % (37-47); Hemoglobin 14.5 g/dL (12.0-16.0); Immature Granulocytes # (auto) 0.01 K/uL (0.00-0.02); Immature Granulocytes % (auto) 0.2 %; Lymphocytes # (auto) 1.66 K/uL (1.2-3.4); Mean Corpuscular Hgb Conc 34.8 g/dL (32-36); Mean Corpuscular Volume 92.5 fL (80-100); Mean Platelet Volume 9.8 fL (7.4-10.4); Monocytes # (auto) 0.44 K/uL (0.11-0.59); Monocytes % (auto) 7.4 %; Neutrophils # (auto) 3.45 K/uL (1.4-6.5); Neutrophils % (auto) 58.3 %; Platelet Count 307 K/uL (130-400); RDW Coefficient of Variation 13.3 % (11.5-14.5); RDW Standard Deviation 45.3 fL (36.4-46.3); Red Blood Count 4.51 M/uL (4.2-5.4); White Blood Count 5.92 K/uL (4.8-10.8)
--- NOTE | 2018-11-18 14:15 | XRay Report ---
XR chest Pre-admission PA/Lat HISTORY: Preop. COMPARISON: Chest 09/16/2016. FINDINGS: The lungs are clear. Cardiac silhouette is normal in size. No pleural effusions. No pneumot horax. IMPRESSION: No acute process. Electronically signed by: Ivan Trejo M.D. 11/18/2018 2:14 PM
[2018-11-18 14:19] LABS: Albumin Level 3.5 gm/dl (3.4-5.0); BUN Creatinine Ratio 23.8 (10-20); Calcium 9.6 mg/dl (8.5-10.1); Creatinine Clr Calc Pharmacy 73.8 ml/min; Est GFR (African American) 86.5; Est GFR (Non-African American) 74.6; Estimated Average Glucose 131 mg/dl; Hemoglobin A1C 6.2 % (4.5-5.6); Potassium 3.9 mmol/L (3.5-5.1)
[2018-11-18 14:25] LABS: Partial Thromboplastin Ratio 0.9; Partial Thromboplastin Time 24.8 Seconds (21.0-31.0); Prothrombin Time 10.4 Seconds (9.0-12.0)
[2018-11-18 14:37] LABS: Appearance Urine Clear (Clear); Bilirubin Urine Negative (Negative); Blood Urine Negative (Negative); Color Urine Yellow; Glucose Urine UA Negative (Negative); Ketones Urine Negative (Negative); Leukocyte Esterase Urine Negative (Negative); Nitrite Urine Negative (Negative); Protein Urine Negative (Negative); Specific Gravity Urine 1.018 (1.000-1.030); Urobilinogen Urine Negative (Negative); pH Urine 5.5 (4.5-7.5)
--- NOTE | 2018-11-29 18:25 | History and Physical Report ---
DATE OF ADMISSION: 12/01/2018 CHIEF COMPLAINT: Right shoulder pain. HISTORY OF PRESENT ILLNESS: A 68-year-old female patient of Dr. Beckham'kaushik complaining of chronic right shoulder pain, longstanding, now progressively getting worse. The patient has failed conservative treatments and she has been diagnosed with end-stage osteoarthritis per clinical and radiographic exams. The patient wished to proceed with a right total shoulder arthroplasty. PAST MEDICAL HISTORY: Hypercholesterolemia, hypothyroidism acid reflux. She gets migraines from anesthesia. SOCIAL HISTORY: Nonsmoker, nondrinker. PAST SURGICAL HISTORY: Right ankle ORIF, tubal ligation and left total knee arthroplasty. FAMILY HISTORY: Noncontributory. REVIEW OF SYSTEMS: Chronic right shoulder pain and weakness. Otherwise, denies any shortness of breath, chest pain, nausea, vomiting or other joint complaints. MEDICATIONS: 1. Levothyroxine 75 mcg twice daily Wednesday, Wednesday, Wednesday and once daily Wednesday, Wednesday, , Wednesday. 2. Atorvastatin 10 mg. 3. Vitamin D3 50 mcg daily. 4. Multivitamin daily. 5. Calcium 600 mg daily. 6. [place] 1600 mg daily. 7. Aspirin 81 mg daily. ALLERGIES: No known drug allergies. PHYSICAL EXAMINATION: GENERAL: Well-developed, well-nourished 68-year-old female, in no acute distress. She is alert and oriented x3 and pleasant. HEENT: Normocephalic, atraumatic. Extraocular motions are intact. Pupils are equal and reactive to light. HEART: Regular rate and rhythm. No murmurs. LUNGS: Clear. ABDOMEN: Soft, nontender, bowel sounds present. EXTREMITIES: Right shoulder active range of motion of 0-80, passively to just 90. She has crepitation and pain with passive and active range of motion. She has 3-4/5 strength. NEUROLOGIC: Neurovascularly, she is intact in her right upper extremity. DIAGNOSES: Right shoulder end-stage osteoarthritis, hypercholesterolemia, hypothyroidism, acid reflux, migraines with anesthesia. PLAN: The patient was advised of her diagnosis. Indications, risks, benefits, postop course have all been reviewed. The patient wished to proceed with a right total shoulder arthroplasty. Necessary consent forms, preoperative testing and clearances will be obtained. EDDIE
[2018-12-01] MEDS ORDERED: GABAPENTIN 300 MG PO SCH (06:00)
[2018-12-01] MEDS ORDERED: LR 15ML/HR IV SCH (06:00)
[2018-12-01] MEDS ORDERED: CeleBREX 200 MG CAP PO SCH (06:00)
[2018-12-01] MEDS ORDERED: dexAMETHasone 4 MG TAB PO SCH (06:00)
[2018-12-01] MEDS ORDERED: METOCLOPRAMIDE HCL 10 MG TABLET PO SCH (06:00)
[2018-12-01] MEDS ORDERED: FAMOTIDINE 20 MG TAB PO SCH (06:00)
[2018-12-01] MEDS ORDERED: ACETAMINOPHEN 500 MG TAB PO SCH (06:00)
[2018-12-01] MEDS ORDERED: CEFAZOLIN 2000MG 2,000 MG/15 ML SYR IV SCH (06:00)
[2018-12-01] MEDS ORDERED: ROPIVACAINE 0.5% 5 MG/ML 30 ML VIAL ONE (06:13)
[2018-12-01] MEDS ORDERED: MIDAZOLAM HCL 1 MG/ML 2ML VIAL ONE (07:05)
[2018-12-01] MEDS ORDERED: fentaNYL citrate 100 MCG/2 ML VIAL ONE (07:05)
[2018-12-01] MEDS ORDERED: LIDOCAINE HCL 2% 2 ML VIAL/AMP(20MG/ML) INFIL ONE (07:05)
[2018-12-01] MEDS ORDERED: NEOSTIGMINE METHYLSULFATE 5 MG/5 ML SYR ONE (07:05)
[2018-12-01] MEDS ORDERED: DEXAMETHASONE SOD INJ 4 MG/ML VIAL ONE (07:05)
[2018-12-01] MEDS ORDERED: PROPOFOL IV EMULSION 10 MG/ML 20 ML VIAL IV ONE (07:05)
[2018-12-01] MEDS ORDERED: GLYCOPYRROLATE 0.2 MG/ML VIAL ONE (07:05)
[2018-12-01] MEDS ORDERED: ONDANSETRON INJ 2 MG/ML 2 ML VIAL ONE (07:05)
--- NOTE | 2018-12-01 07:27 | History & Physical Bridge Note ---
Date of Service December 01, 2018 History & Physical Bridge Note I have examined the patient, reviewed the History & Physical and in the interval since the performance of the History & Physical I have noted the following changes of clinical significance: no changes noted
[2018-12-01] MEDS ORDERED: HYDROmorphone INJ 1 MG/ML SYRINGE IV PRN (08:17)
[2018-12-01] MEDS ORDERED: KETOROLAC 30 MG/ML VIAL IV PRN (08:17)
[2018-12-01] MEDS ORDERED: ONDANSETRON INJ 2 MG/ML 2 ML VIAL IV PRN ×2 (08:17→13:27)
[2018-12-01] MEDS ORDERED: ATROPINE SULFATE 0.1 MG/ML 10ML SYR IV PRN (08:17)
[2018-12-01] MEDS ORDERED: BACITRACIN INJ 50,000 UNIT VIAL ONE (08:36)
[2018-12-01] MEDS ORDERED: EpINEphrine HCL INJ 1 MG/ML 1ML SYRINGE ONE (08:37)
[2018-12-01] MEDS ORDERED: ROCURONIUM BROMIDE 10 MG/ML 5 ML VIAL ONE (11:41)
[2018-12-01] MEDS ORDERED: ePHEDrine sulfate 50 MG/ML SYR ONE (11:45)
[2018-12-01] MEDS ORDERED: PHENYLEPHRINE 100MCG/ML 5ML SYR ONE (11:45)
--- NOTE | 2018-12-01 12:12 | Post Operative Brief Note ---
Immediate Post Op Note v1 Date of Surgery December 01, 2018 Pre & Post Diagnosis Operation Date: 12/01/18 08:55 Pre-Op Diagnosis: Right Shoulder End-Stage Osteoarthritis, biceps tenosynovitis Post-Op Diagnosis: Right Shoulder End-Stage Osteoarthritis, biceps tenosynovitis with biceps tendinopathy Procedure Operation Date: 12/01/18 08:55 Actual Procedures p Right Total Shoulder Arthroplasty(Cemented) and Biceps Tenodesis(Right) - Andrade Beckham MD Surgeon Andrade Beckham MD Stack Clerk Godwin GOMEZ Estimated Blood Loss 40 Findings Consistent with Post-Op Diagnosis Specimens Humeral head Drains Hemovac Drain Anesthesia Type General Regional Complications none Disposition Accompanied Patient To Recovery: No Disposition: Recovery Room Overlapping Procedure I was present for: the critical portions of procedure.
--- NOTE | 2018-12-01 12:44 | XRay Report ---
XR shoulder RT min 2V routine CLINICAL HISTORY: Post shoulder surgery COMPARISON STUDY: None. FINDINGS: The patient is status post a right total shoulder arthroplasty. The hardware appears intact . No fracture or dislocation. Skin osmel and surgical drains are in place. IMPRESSION: Status post right total shoulder arthroplasty. No evidence for hardware complication. Electronically signed by: Ivan Trejo M.D. 12/01/2018 12:42 PM
--- NOTE | 2018-12-01 12:50 | Anesthesiology Progress Note ---
Date of Service December 01, 2018 Anesthesia Post Procedure Vital Signs Vital Signs: Temp Pulse Pulse Resp BP Pulse Ox 12/01/18 12:40 83 17 104/64 92 12/01/18 12:30 91 H 17 100/65 93 12/01/18 12:20 90 20 91/64 L 93 12/01/18 12:13 36.5 C 100 H 18 101/71 92 12/01/18 06:35 36.7 C 78 20 108/73 93 Pain Intensity Right Shoulder: Pain Intensity: 6 Transfer of Care Handoff Completed per policy Notes Mental Status: alert / awake / arousable Patient Amnestic to Procedure: Yes Nausea / Vomiting: adequately controlled Pain: adequately controlled Airway Patency, RR, SpO2: stable & adequate BP & HR: stable & adequate Hydration State: stable & adequate Anesthetic Complications: no major complications apparent
[2018-12-01] MEDS ORDERED: OXYCODONE HCL IR 5 MG TAB (IMMEDIATE RELEASE) PO PRN (13:27)
[2018-12-01] MEDS ORDERED: HYDROmorphone INJ 0.5 MG/0.5 ML SYR IV PRN (13:27)
[2018-12-01] MEDS ORDERED: BISACODYL 10 MG SUPP PR PRN (13:27)
[2018-12-01] MEDS ORDERED: NALOXONE HCL 0.4 MG/1 ML VIAL/CARP IV PRN (13:27)
[2018-12-01] MEDS ORDERED: METOCLOPRAMIDE HCL INJ 5 MG/ML 2 ML VIAL IV PRN (13:27)
[2018-12-01] MEDS ORDERED: MAGNESIUM HYDROXIDE SUSP 30 ML UDC PO PRN (13:27)
[2018-12-01] MEDS ORDERED: SODIUM CHLORIDE 0.9% 1000ML 1,000 ML IV SCH (14:25)
[2018-12-01] MEDS: ACETAMINOPHEN 500 MG TAB PO SCH ×2 (15:30→22:10)
--- NOTE | 2018-12-01 17:36 | Operative Report ---
Post Operative Report Pre & Post Diagnosis Operation Date: 12/01/18 08:55 Pre-Op Diagnosis: Right Shoulder End-Stage Osteoarthritis biceps tenosynovitis Post-Op Diagnosis: Right Shoulder End-Stage Osteoarthritis biceps tenosynovitis and biceps tendinopathy Procedure Operation Date: 12/01/18 08:55 Actual Procedures p Right Total Shoulder Arthroplasty(Cemented) and Biceps Tenodesis(Right) - Andrade Beckham MD Surgeon Andrade Beckham MD Supplier Engineer Godwin GOMEZ Estimated Blood Loss 40 Findings Consistent with Post-Op Diagnosis Specimens Humeral head Drains 2 Hemovac Anesthesia Type General Regional Complications none Disposition Accompanied Patient To Recovery: No Disposition: Recovery Room Indications 68-year-old female with end-stage osteoarthritis of her right shoulder. MRI demonstrates rotator cuff intact but she has marked tenosynovitis from the biceps tendon with large fluid collections. Radiographs demonstrate she has concentric wear of the glenoid with type A glenoid with no articular cartilage remaining [id number] Description of Procedure The patient was taken to the operating room and anesthetized under a general and regional block anesthesia. A towel roll was placed under the medial border of the scapula of the right shoulder. The patient's head was placed on a foam headrest and protective eyewear was placed and the extremities were well padded. The arm was draped free in order to manipulate the shoulder as necessary. The shoulder exam demonstrated 40 degrees external rotation 130 degrees forward elevation 70 degrees abduction. The shoulder was sterilely prepped and draped in the usual sterile fashion. An anterior deltopectoral approach was performed. A longitudinal incision was made in the interval. The skin was incised sharply and subcutaneous tissues dissected down to the fascia. The cephalic vein was identified and retracted laterally with the deltoid. Any crossing veins were tied off with silk ties and divided. The clavipectoral fascia was divided at the lateral margin of the conjoined tendon and divided up to the level of the coracoacromial ligament which was preserved. The upper 1 cm of the pectoralis was released for inferior exposure. The biceps tendon findings demonstrated large fluid collections around the biceps tendon one appeared to be a ganglion cyst. The rotator cuff tendon findings demonstrated intact rotator cuff. Incision was made in the biceps tendon sheath and these large collections of cystic material were removed from around the biceps tendon. The biceps was tenodesed to the pectoralis tendon with a qjbzlh-gp-tdawn #2 FiberWire sutures and the biceps divided above the level of tenodesis. The circumflex vessels were identified and tied off with silk ties and divided laterally. The fibers and subscapularis were split longitudinally at the level of the circumflex vessels down to the capsule and then reflected off the inferior capsule using a Kitner elevator. The axillary nerve was identified with a tug test and protected with a blunt Eula retractor. The rotator interval was opened up and extended down to the glenoid. The biceps tendon was identified and tenodesed to the pectoralis tendon with ntxaoj-yh-hvobp #2 FiberWire sutures in the proximal biceps was resected. The subscapularis tendon was taken down with a trans- tendinous incision leaving a cuff of tissue for repair on the lesser tuberosity. The incision was carried down to the tendon and the capsule and a #1 Vicryl suture was placed into the free end of the subscapularis tendon. The capsule was subperiosteally dissected off the inferior neck of the humerus exposing the humeral osteophytes which demonstrated large inferior humeral osteophytes and so me superior osteophytes and humeral head.. The osteophytes were excised with an artist chisel and a rongeur. The capsular release along the inferior neck of the humerus was completed. The humerus was then retracted posterior to the glenoid with a Fukuda retractor. The remainder of the biceps tendon and labrum was resected. The glenoid findings demonstrated concentric wear with large osteophytes anteriorly inferiorly. The osteophytes and labral tissue were resected and then I did an anterior inferior and posterior inferior release with electrocautery on bone and a Parks elevator with the axillary nerve continuing to be protected with the blunt Hohmann retractor inferiorly. When the releases were completed and the humeral head was exposed with some extension and external rotation and in anatomic head cut was made using the oscillating saw. The humeral head findings demonstrated eburnated bone of the humeral head grade 4 wear but no flattening. The humeral head was then retracted posterior to the glenoid with Hohmann retractors and Bankart retractor placed anteriorly. A central drill hole was made into the glenoid. The glenoid was sized for a size 48 component. The Tornier aequalis humeral head and ascend flex stem total shoulder arthroplasty system was used and the Affinity Cortiloc glenoid component was chosen. The glenoid was reamed and the central drill widened and the guide for the peg holes was placed in the peg holes were drilled and a trial component was placed with a tight fit. The trial was removed and the glenoid was irrigated with pulsatile lavage antibiotic solution and the drill holes were dried and packed with epinephrine-soaked tampons for hemostasis. The [place] G cement was vacuum mixed. The final component was cemented into position and h eld in position with pressure until the cement cured. Attention was taken to the humeral preparation. A centralizing awl was used in the canal followed by broaches up to a size 6 A. This had the appropriate fit and fill. A size 48 x 18 millimeter humeral head was then used. It was rotated into appropriate position. A trial reduction was performed and the shoulder had some slight subluxation more than 50% with also some subluxation with forward flexion and abduction so I went ahead and performed a posterior capsular shift using #1 Vicryl this corrected situation back to acceptable laxity.. The trial was removed and the humerus and canal were irrigated with antibiotic solution with bacitracin. 3 drill holes were made into the hard bone in the bicipital groove lateral to the lesser tuberosity and 3 #5 FiberWire transosseous sutures were placed for repair of the subscapularis. After further irrigation of the canal and the final components were assembled. The final components were the Tornier ascend flex PTC standard 6A stem with a 48 x 18 high offset aequalis humeral head. The implant was then impacted into the humerus with a tight press-fit. The humerus was reduced to the glenoid and stability verified. The subscapularis was repaired with the #5 FiberWire sutures in a Maurilio-Smith suture technique and lateral row fixation with aieiea-lh-ivsmi #2 FiberWire in the soft tissue. The rotator interval was closed and maximal external rotation. The pectoralis was then closed with atcwtm-hw-pqzwk #2 FiberWire suture. 2 Hemovac drains were placed. The deltopectoral interval was closed with mujwcf-lh-ppzua #1 Vicryl sutures. Range of motion without tension on the repair was 140 degrees forward elevation 90 degrees abduction 45 degrees of external rotation. The subcutaneous tissues were closed with interrupted 2-0 Vicryl and the skin was closed with osmel and a sterile dressing was applied. The patient tolerated the procedure well. Godwin GOMEZ my physician child and youth program assistant, assisted in soft tissue retraction instrument management suture management and assisted in the subcutaneous and skin closure and will participate in the postoperative care the patient. I attest to the content of the Intraoperative Record and any orders documented therein. Any exceptions are noted below.
[2018-12-01] MEDS: CEFAZOLIN 1000MG 1,000 MG/7.5 ML SYR IV SCH (17:49)
[2018-12-01] MEDS: ATORVASTATIN 10 MG TAB PO SCH (21:12)
[2018-12-01] MEDS: DOCUSATE SODIUM 100 MG CAP PO SCH (21:12)
[2018-12-01] MEDS: MULTIVITAMIN TAB PO SCH (21:12)
[2018-12-01] MEDS: ASPIRIN 81 MG ECTAB PO SCH (21:12)
[2018-12-01] MEDS: CALCIUM 600MG + VIT D 400 IU TAB PO SCH (21:12)
[2018-12-01] MEDS: SENNA 8.6 MG TAB PO SCH (21:13)
[2018-12-01] MEDS: CHOLECALCIFEROL 1,000 UNITS TAB PO SCH (21:13)
[2018-12-02] MEDS: CEFAZOLIN 1000MG 1,000 MG/7.5 ML SYR IV SCH (02:33)
[2018-12-02 05:46] LABS: Hematocrit (blood only) 36.1 % (37-47); Hemoglobin 12.3 g/dL (12.0-16.0); Immature Granulocytes # (auto) 0.03 K/uL (0.00-0.02); Immature Granulocytes % (auto) 0.2 %; Lymphocytes # (auto) 1.14 K/uL (1.2-3.4); Lymphocytes % (auto) 9.3 %; Mean Corpuscular Hgb Conc 34.1 g/dL (32-36); Mean Corpuscular Volume 92.8 fL (80-100); Mean Platelet Volume 9.8 fL (7.4-10.4); Monocytes # (auto) 0.75 K/uL (0.11-0.59); Monocytes % (auto) 6.1 %; Neutrophils # (auto) 10.33 K/uL (1.4-6.5); Neutrophils % (auto) 84.4 %; Platelet Count 282 K/uL (130-400); RDW Coefficient of Variation 13.4 % (11.5-14.5); RDW Standard Deviation 45.3 fL (36.4-46.3); Red Blood Count 3.89 M/uL (4.2-5.4); White Blood Count 12.25 K/uL (4.8-10.8)
[2018-12-02] MEDS ORDERED: LEVOTHYROXINE SODIUM 150 MCG TABLET PO SCH (06:30)
[2018-12-02 06:31] LABS: BUN Creatinine Ratio 19.3 (10-20); Calcium 9.6 mg/dl (8.5-10.1); Creatinine Clr Calc Pharmacy 63.1 ml/min; Est GFR (African American) 71.3; Est GFR (Non-African American) 61.5; Potassium 4.1 mmol/L (3.5-5.1)
[2018-12-02] MEDS: ACETAMINOPHEN 500 MG TAB PO SCH ×3 (06:58→21:39)
--- NOTE | 2018-12-02 07:37 | Orthopedic Progress Note ---
Date of Service December 02, 2018 Assessment & Plan (1) Arthritis of right shoulder region: POD #1, Right TSA, biceps tenodesis PT/ OT DVT proph- ASA D/C planning Home w OPPT Subjective POD #1, Doing well, denies SOB, CP, N/V. Pain controlled well. Physical Exam Physical Exam: Right shoulder dressings c/d/i, no drainage. Drain in tact. Fingers mobile. Sling in tact. Results & Data Vital Signs (Past 12 Hours) Vital Signs Temp Pulse Pulse Resp BP Pulse Ox 12/02/18 07:09 36.4 C L 84 16 115/76 90 12/02/18 05:10 120/78 12/02/18 03:21 36.8 C 74 16 96/62 L 93 12/01/18 23:34 36.7 C 77 14 98/62 L 90
[2018-12-02] MEDS: TRAMADOL HCL 50 MG TABLET PO PRN ×2 (08:45→21:39)
[2018-12-02] MEDS: DOCUSATE SODIUM 100 MG CAP PO SCH ×2 (08:46→20:28)
[2018-12-02] MEDS ORDERED: MULTIVITAMIN TAB PO SCH (09:00)
--- NOTE | 2018-12-02 14:30 | Hospitalist Consultation ---
Date of Consultation December 02, 2018 Assessment & Plan (1) Arthritis of right shoulder region: S/p right total shoulder arthroplasty on 12/[address] Beckham. - Post-operative care per surgery - Pull surgical drain per primary team - PT/OT and home support (2) Hypertension: Per computer chart, though BP has been 100/60 - 115/75 in the last 24 hours without any meds. - No inpatient HTN needs (3) Hypothyroid: Reports her last TSH was 3.4. Plans for a recheck with her PCP in 1-2 weeks. Still feeling some tired, but has had poor sleep from her shoulder pain. - Continue home Synthroid - Follow up with PCP for repeat TSH; no need inpatient (4) DVT prophylaxis: On ASA QPM as home med - DVT ppx per primary team - Likely discharge tomorrow, so likely a lower risk Given medical stability, Hospital Medicine team will sign off. Please re-consult with any questions or concerns. Thank you for letting us assist in the care of this patient! History of Present Illness Attending Physician: Andrade Beckham MD History of Present Illness Pleasant 68yo F w/ hx of hypothyroidism and HTN who presents as a medical consult after right total shoulder arthroplasty on 12/[address] Beckham. She has had increasing right shoulder pain that has not responded to conservative therapy. She underwent uncomplicated right TSA. At present, she has no complaints. She feels well and is having minimal pain. Allergies Allergy/AdvReac Type Severity Reaction Status Date / Time Gddehfg-Uky-Ffb Reductase Allergy MYALGIAS/JOINT Verified 12/01/18 06:25 Inhibitor PAIN WITH STATIN (UNSURE WHICH ONE) Home Medications Home Medications Medication Instructions Recorded Confirmed Type Vitamin D3 1 cap PO QPM 11/10/18 12/01/18 History aspirin 81 mg PO QPM 11/10/18 12/01/18 History atorvastatin 10 mg PO PM 11/10/18 12/01/18 History calcium carbonate [Calcium 600] 600 mg PO QPM 11/10/18 12/01/18 History levothyroxine 75 mcg PO UD 11/10/18 12/01/18 History multivitamin 1 tab PO QPM 11/10/18 12/01/18 History omega 5-omf-rog-fish oil [Fish Oil] 1 cap PO QPM 11/10/18 12/01/18 History ranitidine HCl [Zantac] 150 mg PO DAILY PRN 11/10/18 12/01/18 History Patient History Medical History GERD (gastroesophageal reflux disease) CONTROLLED Hyperlipidemia Hypothyroidism Osteoarthritis Surgical History History of D&C History of ankle surgery RT History of tooth extraction History of total left knee replacement History of tubal ligation Family History Son Family history of diabetes mellitus Mother Family history of diabetes mellitus Grandfather (Maternal) Family history of diabetes mellitus Social History Preferred Language: Malay Communication Ability: Effective Data Modeler Required: No Beliefs That Will Affect Care: None marital status: Current Living Situation: Spouse Other Information That Helps Us Care for You: No Feels Safe at Home: Yes Safety Concerns: Feels Safe At This Time Smoking Status: Former smoker Tobacco Type: cigarettes Do You Dip or Chew Tobacco: No Smoking End Date: QUIT 4+ YEARS AGO Second Hand Exposure: Yes (PREVIOUS EXPOSURE) Tobacco Cessation Education Requested by Patient: No Hx Alcohol Use: Yes Alcohol type: beer Hx Substance Use: No Review of Systems Review of Systems: All systems reviewed & are unremarkable except as noted in HPI & below Physical Exam Constitutional: WD/WN, vitals as above Eyes: EOM intact bilaterally; no conjunctival abnormality ENMT: external ear and nose normal, oropharynx normal Neck: trachea midline, no thyromegaly normal visual inspection Respiratory: normal respiratory effort, lungs clear to auscultation no respiratory distress Cardiovascular: RRR, no murmur, no edema Gastrointestinal (Abdomen): Inspection/Auscultation: abdomen normal to inspection; abdomen not distended Musculoskeletal: no cyanosis or clubbing, extremities motor strength 5/5 Shoulder: + surgical incision and + surgical drain present (Sanguinous drainage) Skin: no rashes, warm and dry Neurologic: moves all extremities and awake Psychiatric: Orientation: alert, oriented to person and cooperative Results & Data Vital Signs (Past 12 Hours) Vital Signs Temp Pulse Pulse Resp BP Pulse Ox 12/02/18 13:08 98 12/02/18 07:09 36.4 C L 84 16 115/76 90 12/02/18 05:10 120/78 12/02/18 03:21 36.8 C 74 16 96/62 L 93 PG Care Time/CCT Total # of Minutes Spent Total Time Spent with Patient: Total time spent is greater than 50% in coordination of care (as documented) at patient's floor/unit and/or counseling patient:
[2018-12-02] MEDS: MULTIVITAMIN TAB PO SCH (20:28)
[2018-12-02] MEDS: CHOLECALCIFEROL 1,000 UNITS TAB PO SCH (20:28)
[2018-12-02] MEDS: CALCIUM 600MG + VIT D 400 IU TAB PO SCH (20:28)
[2018-12-02] MEDS: ATORVASTATIN 10 MG TAB PO SCH (20:28)
[2018-12-02] MEDS: SENNA 8.6 MG TAB PO SCH (20:28)
[2018-12-02] MEDS: ASPIRIN 81 MG ECTAB PO SCH (20:29)
[2018-12-03] MEDS: ACETAMINOPHEN 500 MG TAB PO SCH (05:39)
[2018-12-03] MEDS ORDERED: LEVOTHYROXINE SODIUM 75 MCG TABLET PO SCH (06:30)
[2018-12-03 06:33] LABS: Basophils # (auto) 0.02 K/uL (0-0.2); Basophils % (auto) 0.2 %; Eosinophils # (auto) 0.25 K/uL (0-0.5); Eosinophils % (auto) 2.2 %; Hematocrit (blood only) 37.7 % (37-47); Hemoglobin 12.5 g/dL (12.0-16.0); Immature Granulocytes # (auto) 0.01 K/uL (0.00-0.02); Immature Granulocytes % (auto) 0.1 %; Lymphocytes # (auto) 3.24 K/uL (1.2-3.4); Lymphocytes % (auto) 28.6 %; Mean Corpuscular Hgb Conc 33.2 g/dL (32-36); Mean Corpuscular Volume 93.1 fL (80-100); Mean Platelet Volume 9.6 fL (7.4-10.4); Monocytes # (auto) 1.08 K/uL (0.11-0.59); Monocytes % (auto) 9.5 %; Neutrophils # (auto) 6.72 K/uL (1.4-6.5); Neutrophils % (auto) 59.4 %; Platelet Count 275 K/uL (130-400); RDW Coefficient of Variation 13.6 % (11.5-14.5); RDW Standard Deviation 46.6 fL (36.4-46.3); Red Blood Count 4.05 M/uL (4.2-5.4); White Blood Count 11.32 K/uL (4.8-10.8)
[2018-12-03 07:02] LABS: BUN Creatinine Ratio 24.1 (10-20); Est GFR (Non-African American) 57.8; Potassium 3.8 mmol/L (3.5-5.1)
[2018-12-03] MEDS: DOCUSATE SODIUM 100 MG CAP PO SCH (07:28)
--- NOTE | 2018-12-03 08:08 | Orthopedic Progress Note ---
Date of Service December 03, 2018 Assessment & Plan (1) Arthritis of right shoulder region: POD #2, Right TSA, biceps tenodesis, posterior capsular shift. PT/ OT DVT proph- ASA D/C planning Home today. Home w OPPT Subjective POD #2, Doing well, denies SOB, CP, N/V. Pain controlled well. Per nursing had 1 episode this AM of dizziness while trying to have a BM, this was isolated and resolved. VSS. Physical Exam Physical Exam: Right Shoulder incision c/d/i, no erythema, no drainage. Fingers mobile. Sling in tact. A&Ox3. Results & Data Vital Signs (Past 12 Hours) Vital Signs Temp Pulse Resp BP Pulse Ox 12/03/18 06:11 36.8 C 70 16 106/70 95 12/02/18 23:45 37 C 86 18 111/71 93
--- NOTE | 2018-12-16 02:07 | Discharge Summary ---
HISTORY OF PRESENT ILLNESS: This is a 68-year-old female patient of Dr. Beckham's complaining of chronic right shoulder pain, longstanding, now progressively getting worse. She was diagnosed with end-stage osteoarthritis per clinical and radiographic exams. The patient elected to proceed with a right total shoulder arthroplasty. PAST MEDICAL HISTORY: Hypercholesterolemia, hypothyroidism, acid reflux and migraines from anesthesia. POSTOPERATIVE COURSE: The patient underwent a right total shoulder arthroplasty, biceps tenodesis and posterior capsular shift on 12/01/2018. She was followed closely with medical consultation and pain control and physical therapy. The patient did well postoperatively and was discharged home on postoperative day #2. PHYSICAL EXAMINATION: On discharge, right shoulder incision was clean, dry and intact. [place] were intact. Skin edges were approximated well. There was no redness or drainage. Fingers were mobile. Sling was intact. Neurologically and neurovascularly she is intact in her right upper extremity. DIAGNOSES: Status post right total shoulder arthroplasty, biceps tenodesis and posterior capsular shift. Hypercholesterolemia, hypothyroidism, acid reflux and migraines from anesthesia. PLAN: The patient was discharged home with outpatient physical therapy on postoperative day #2. She will continue her preadmission medications with the addition of pain medication and aspirin for DVT prophylaxis. She will follow up as an outpatient as scheduled with Dr. Beckham.
== END 2018-12-03 12:29 | disposition home or self-care (01) | DRG 483 ==
LOC: ASU 05:55 → 3E 12:17

== ENCOUNTER 2022-12-16 08:42 | Observation (INO) ==
--- NOTE | 2022-11-12 13:19 | PAT Medication Instructions ---
Medication Instructions Date of Service November 12, 2022 Home Medications atorvastatin 10 mg tablet 10 mg PO HS calcium carbonate 600 mg calcium (1,500 mg) tablet (Calcium) 600 mg PO QPM levothyroxine 75 mcg tablet 75 mcg PO UD multivitamin 1 tab PO QPM omega 4-yrn-dlr-fish oil 1,000 mg (120 mg-180 mg) capsule (Fish Oil) 1 cap PO QPM ascorbic acid (vitamin C) 500 mg tablet (Vitamin C) 500 mg PO QAM cetirizine 10 mg tablet (Zyrtec) 10 mg PO DAILY PRN famotidine 20 mg tablet 20 mg PO DAILY PRN Continue as directed levothyroxine 75 mcg tablet 75 mcg PO UD famotidine 20 mg tablet 20 mg PO DAILY PRN(if needed) STOP taking 2 weeks before surgery (or as soon as possible if surgery is within 2 weeks) omega 0-hux-ysa-fish oil 1,000 mg (120 mg-180 mg) capsule (Fish Oil) 1 cap PO QPM DO NOT take the morning of surgery ascorbic acid (vitamin C) 500 mg tablet (Vitamin C) 500 mg PO QAM cetirizine 10 mg tablet (Zyrtec) 10 mg PO DAILY PRN Take morning of surgery With a small sip of water, OTHERWISE NOTHING TO EAT OR DRINK AFTER MIDNIGHT: Take evening before surgery atorvastatin 10 mg tablet 10 mg PO HS calcium carbonate 600 mg calcium (1,500 mg) tablet (Calcium) 600 mg PO QPM multivitamin 1 tab PO QPM Other Notes If you have any questions please call us at [phone] or [phone] or [phone] or [phone]
--- NOTE | 2022-11-19 11:19 | Anesthesiology Consultation ---
Date of Service November 19, 2022 Assessment & Plan (1) Encounter for pre-operative examination: Chart Review Chart Review: Acceptable Risk for Surgery (pending PCP clearance ) and Patient seen in Pre Admission Testing - Please obtain PCP clearance (Dr Jean)- seen about three weeks ago per patient - Pt sensitive to pain medications Pt currently scheduled as 23 hours observation. If surgeon decides to change patient to Same Day Joint, patient would be acceptable risk for TSA, pending patient is motivated, has good support and surgeon's office completes [facility] Program preop requirements. Per PAT appt on 11/19/22, patient denies any recent travel or large group activities. Pt is vaccinated for Covid. Will leave to surgeon's discretion if preop Covid testing needed. Educated on importance of using Covid precautions one week prior to surgery Right TSA 12/01/18= Done under GA with Grade 1 view with MAC #3. ETT #7.5. Smooth IV induction DL x 1. Atraumatic Teaching & Discussion Pre-Anesthesia Teaching/Discussion Notes: Instructed NPO after midnight before surgery,except medications with 15 cc of water. Medication instructions provided according to the PAT guidelines. History Surgery Operation Date: 12/16/22 11:40 Proposed Procedures p Left Total Shoulder Arthroplasty - Andrade Beckham MD Height/Weight Height: 5 ft 6 in Weight: 89.3 kg Allergies Allergy/AdvReac Type Severity Reaction Status Date / Time Lwfsyxy-VQY-NhZ Reductase Allergy MYALGIAS/JOINT Verified 11/12/22 12:43 Inhibitor PAIN WITH [Arzrzmk-Byo-Joy Reductase STATIN Inhibitor] (UNSURE WHICH ONE) Medications Home Medications Medication Instructions Recorded Confirmed Last Taken atorvastatin 10 mg tablet 10 mg PO HS 11/10/18 11/12/22 11/30/18 17:00 calcium carbonate 600 mg calcium 600 mg PO QPM 11/10/18 11/12/22 11/30/18 17:00 (1,500 mg) tablet (Calcium) levothyroxine 75 mcg tablet 75 mcg PO UD 11/10/18 11/12/22 12/01/18 04:00 multivitamin 1 tab PO QPM 11/10/18 11/12/22 11/30/18 17:00 omega 7-ips-spk-fish oil 1,000 mg 1 cap PO QPM 11/10/18 11/12/22 11/16/18 17:00 (120 mg-180 mg) capsule (Fish Oil) ascorbic acid (vitamin C) 500 mg 500 mg PO QAM 11/12/22 11/12/22 Unknown tablet (Vitamin C) cetirizine 10 mg tablet (Zyrtec) 10 mg PO DAILY PRN allergies 11/12/22 11/12/22 Unknown famotidine 20 mg tablet 20 mg PO DAILY PRN Acid Reflux 11/12/22 11/12/22 Unknown Past Medical History Medical History GERD (gastroesophageal reflux disease) CONTROLLED Hx of migraines Hx of seasonal allergies Hyperlipidemia Hypothyroidism Osteoarthritis Exercise / Class Metabolic Activity II 4-5 Yardwork/Stairs/Walk up hill (one flight of stairs - no chest pain or SOB ) Past Family History Family History Son Family history of diabetes mellitus Mother Family history of diabetes mellitus Grandfather (Maternal) Family history of diabetes mellitus Past Surgical History Surgical History History of ankle surgery RT History of D&C History of tooth extraction History of total left knee replacement History of total replacement of right shoulder joint History of tubal ligation Hx of colonoscopy Past Anesthesia History No Hx of Anesthesia Complications (with exception with knee surgery- had SAB - had post op headache ) and No Family Hx of Anesthesia Complications History of PONV No Hx of PONV and No Hx of Motion Sickness Social History Smoking Status: Former smoker tobacco type: cigarettes Do You Dip or Chew Tobacco: No Smoking End Date: 2009 Hx Alcohol Use: Yes Alcohol type: beer alcohol intake frequency: holidays/special occasions only Hx Substance Use: No substance use type: does not use Review of Systems Hx of snoring- possible witnessed apnea - no hx of sleep study Patient denies chest pain, shortness of breath, dyspnea on exertion, cough, wheezing, palpitations. No hx of seizures, stroke, [place]. No hx of blood clots or blood transfusions Physical Exam Vital Signs VITALS BP 108/78 (manually) P 75 TEMP 98.2 SP02 93% RESP 16 Constitutional no acute distress ENMT Mouth: no TMJ clicking Thyromental Distance: > or= 3.5 Finger Breadths (3.5) Mallampati Class: III Left front tooth capped Missing molars Neck + limited neck extension (mild) Respiratory normal respiratory effort; no respiratory distress Auscultation: lungs clear to auscultation bilaterally; no wheezes Cardiovascular Rate/Rhythm: regular rate and regular rhythm Heart Sounds: no murmur Vessels: no carotid bruit Musculoskeletal Spine: + pain with cervical ROM (minimal ) Extremities: extremities normal to inspection Psychiatric Orientation: alert Lab Results Anesthesia Preop Results Results Anesthesia Widget: WBC 5.20 K/ul (4.8-10.8) 11/19/22 Hgb 14.8 g/dl (12.0-16.0) 11/19/22 Hct 44.1 % (37.0-47.0) 11/19/22 Plt 305 K/uL (130-400) 11/19/22 Na 143 mmol/L (136-145) 11/19/22 K 4.3 mmol/L (3.5-5.1) 11/19/22 Cl 110 mmol/L (98-107) H 11/19/22 CO2 27 mmol/L (21-32) 11/19/22 BUN 19 mg/dl (6-23) 11/19/22 Creat 0.82 mg/dl (0.6-1.2) 11/19/22 Glucose Level 103 mg/dl (70-99(Fasting)) H 11/19/22 PT 10.9 Seconds (9.0-12.0) 11/19/22 PTT 25.9 Seconds (21.0-31.0) 11/19/22 INR 1.0 (0.9-1.1) 11/19/22 Urine Color Yellow 11/19/22 Urine Appearance Clear (Clear) 11/19/22 Urine pH 6.0 (4.5-7.5) 11/19/22 Urine Specific [place] 1.008 (1.000-1.030) 11/19/22 Urine Protein Negative (Negative) 11/19/22 Urine Glucose (UA) Negative (Negative) 11/19/22 Urine Ketones Negative (Negative) 11/19/22 Urine Blood Negative (Negative) 11/19/22 Urine Nitrite Negative (Negative) 11/19/22 Urine Bilirubin Negative (Negative) 11/19/22 Urine Urobilinogen Negative (Negative) 11/19/22 Urine Leukocyte Esterase Negative (Negative) 11/19/22 Blood Type A Positive 11/19/22 Antibody Screen NEGATIVE 11/19/22 Testing Electrocardiogram Date: 11/19/22 Findings: + NSR @ (77bpm ) Low voltage QRS Chest X-Ray Date: 11/19/22 Findings: + NAD COVID-19 Risk Screen Screening Information COVID-19 Screen Date: 11/19/22 Exposure 21 Days Family/Household +COVID Last 21 Days: No Exposure 10 Days Any COVID Exposure Last 10 Days: No Symptoms Last 10 Days Experienced COVID Sx Last 10 Days: No + COVID 0-90 Days COVID + in Last 0-90 Days: No Risk Plan COVID Risk Plan: No Risk Identified Patient Education COVID Preop Screening Education Complete: Yes
--- NOTE | 2022-12-15 17:17 | History & Physical Report ---
Date of Service December 15, 2022 Assessment & Plan (1) Primary osteoarthritis, left shoulder: Plan: Treatment options discussed with the patient. She has failed conservative measures and would like to proceed with surgical invention. Risks, benefits and alternatives to surgery including but not limited to infection, DVT, pain, stiffness, need for revision surgery, damage to blood vessels, damage to nerves, PE, , were discussed with the patient and they wish to proceed. Plan for left total shoulder arthroplasty scheduled for December 16 at [facility] with Dr. Beckham. Plan on outpatient physical therapy postop. All questions answered. Patient will follow-up postop. History of Present Illness Chief Complaint: Left shoulder pain Primary Care Provider: Sekou Jean 72-year-old female with past medical history significant for hypertension, hypothyroidism, GERD who presents with ongoing left shoulder pain. Pain is interfering with her daily activities. She has failed conservative measures. She would like to proceed with surgical intervention. Patient denies headaches, sweats, fevers, chills, double vision, blurred vision, cough, sore throat, dysphagia, chest pain, sob, wheezing, n/v/d/c, numbness, tingling, fatigue, urinary symptoms, mood disorders. ROS positive for Left shoulder pain and s tiffness. Allergies Allergy/AdvReac Type Severity Reaction Status Date / Time Idyzagz-EJR-InH Reductase Allergy MYALGIAS/JOINT Verified 11/12/22 12:43 Inhibitor PAIN WITH [Bawbiyq-Nmm-Fey Reductase STATIN Inhibitor] (UNSURE WHICH ONE) Home Medications Medication Instructions Recorded Confirmed Type atorvastatin 10 mg tablet 10 mg PO HS 11/10/18 11/12/22 History calcium carbonate 600 mg calcium 600 mg PO QPM 11/10/18 11/12/22 History (1,500 mg) tablet (Calcium) levothyroxine 75 mcg tablet 75 mcg PO UD 11/10/18 11/12/22 History multivitamin 1 tab PO QPM 11/10/18 11/12/22 History omega 4-pgf-jnq-fish oil 1,000 mg 1 cap PO QPM 11/10/18 11/12/22 History (120 mg-180 mg) capsule (Fish Oil) ascorbic acid (vitamin C) 500 mg 500 mg PO QAM 11/12/22 11/12/22 History tablet (Vitamin C) cetirizine 10 mg tablet (Zyrtec) 10 mg PO DAILY PRN allergies 11/12/22 11/12/22 History famotidine 20 mg tablet 20 mg PO DAILY PRN Acid Reflux 11/12/22 11/12/22 History Past Med/Surg History Medical History GERD (gastroesophageal reflux disease) CONTROLLED Hx of migraines Hx of seasonal allergies Hyperlipidemia Hypothyroidism Osteoarthritis Surgical History History of ankle surgery RT History of D&C History of tooth extraction History of total left knee replacement History of total replacement of right shoulder joint History of tubal ligation Hx of colonoscopy Family History Son Family history of diabetes mellitus Mother Family history of diabetes mellitus Grandfather (Maternal) Family history of diabetes mellitus Social History Smoking Status: Former smoker Smoking End Date: 2009; Second Hand Exposure: No; Do You Dip or Chew Tobacco: No; Tobacco Cessation Education Requested by Patient: No Hx Alcohol Use: Yes Alcohol type: beer Hx Substance Use: No Preferred Language: Spanish Communication Ability: Effective Oxidation Engineer Required: No Beliefs That Will Affect Care: None marital status: Current Living Situation: Spouse and Family Other Information That Helps Us Care for You: No Feels Safe at Home: Yes Safety Concerns: Feels Safe At This Time Assistive Devices: Glasses Review of Systems All systems reviewed & are unremarkable except as noted in HPI & below Physical Exam Constitutional: well developed and well nourished; no acute distress Eyes: PERRL, conjunctivae normal, anicteric sclerae ENMT: external ear and nose normal, oropharynx normal Neck: trachea midline, no thyromegaly Respiratory: normal respiratory effort, lungs clear to auscultation Cardiovascular: RRR, no murmur, no edema Musculoskeletal: Left shoulder: Strength is normal. Tenderness anterior aspect of her shoulder over the anterior glenoid. Positive impingement signs. Range of motion: External rotation to 45 degrees, forward flexion to 70 degrees, abduction to 70 degrees. Skin: no rashes, warm and dry Neurologic: patellar DTR's 2+ bilat, sensation intact Psychiatric: A+Ox3, euthymic affect Results & Data Diagnostic Findings Left shoulder radiographs demonstrate stage osteoarthritis left shoulder, [id number] glenohumeral joint. There is mild AC joint arthritis with a type II acromion. MRI demonstrates intact rotator, as well as long head biceps tendinopathy
[~2022-12-16 08:42] MED LIST changes: +ACETAMINOPHEN 500 MG TAB PO SCH; -ASPI81TA28 PO; -ATOR10TA82 PO; +BUPIVACAINE 0.5 % 5 MG/1 ML PF 10ML VIAL ONE; +CeleBREX 200 MG CAP PO SCH; +FAMOTIDINE 20 MG TAB PO SCH; +GABAPENTIN 300 MG CAP PO SCH; +LIDOCAINE 2% 2 ML VIAL/AMP(20MG/ML) INFIL ONE; +LR 15ML/HR IV SCH; +METOCLOPRAMIDE HCL 10 MG TABLET PO SCH; +MIDAZOLAM HCL 1 MG/ML 2ML VIAL ONE; -MULT-506 PO; -OMEG10007 PO; +PROPOFOL IV EMULSION 10 MG/ML 20 ML VIAL IV ONE; +TRANEXAMIC ACID 1,000 MG **IV Intra-op IV SCH; +TRANEXAMIC ACID 1,000 MG **IV Pre-op IV SCH; -ZNTT/150 PO; +ceFAZolin 2000MG 2,000 MG/15 ML SYR IV SCH; +dexAMETHasone 4 MG TAB PO SCH; +fentaNYL citrate PF 100 MCG/2 ML VIAL ONE
--- NOTE | 2022-12-16 09:07 | History & Physical Bridge Note ---
Date of Service December 16, 2022 History & Physical Bridge Note I have examined the patient, reviewed the History & Physical and in the interval since the performance of the History & Physical I have noted the following changes of clinical significance: no changes noted
[2022-12-16] MEDS ORDERED: ATROPINE SULFATE 0.1 MG/ML 10ML SYR IV PRN (10:30)
[2022-12-16] MEDS ORDERED: FLUMAZENIL 0.1 MG/1 ML 10 ML VIAL IV PRN (10:30)
[2022-12-16] MEDS ORDERED: fentaNYL citrate PF 100 MCG/2 ML VIAL IV PRN (10:30)
[2022-12-16] MEDS ORDERED: LABETALOL HCL IV 5 MG/ML 20ML IV PRN (10:30)
[2022-12-16] MEDS ORDERED: HYDROmorphone INJ 1 MG/ML SYRINGE IV PRN (10:30)
[2022-12-16] MEDS ORDERED: ePHEDrine sulfate 50 MG/ML AMP IV PRN (10:30)
[2022-12-16] MEDS ORDERED: NALOXONE HCL 0.4 MG/1 ML VIAL/CARP IV PRN ×2 (10:30→15:45)
[2022-12-16] MEDS ORDERED: PROMETHAZINE HCL 12.5 MG in SODIUM CHLORIDE 0.9% 50 ML IV PRN (10:30)
[2022-12-16] MEDS ORDERED: ONDANSETRON INJ 2 MG/ML 2 ML VIAL IV PRN ×2 (10:30→15:45)
[2022-12-16] MEDS ORDERED: EpINEphrine HCL INJ 1 MG/ML 1ML SYRINGE ONE (12:03)
[2022-12-16] MEDS ORDERED: ROCURONIUM BROMIDE 10 MG/ML 5 ML VIAL IV ONE (13:02)
[2022-12-16] MEDS ORDERED: ePHEDrine sulfate 50 MG/ML SYR ONE (13:02)
[2022-12-16] MEDS ORDERED: ONDANSETRON INJ 2 MG/ML 2 ML VIAL ONE (13:02)
[2022-12-16] MEDS ORDERED: PHENYLEPHRINE 100MCG/ML 5ML SYR ONE (13:02)
[2022-12-16] MEDS ORDERED: DEXAMETHASONE SOD INJ 4 MG/ML VIAL ONE (13:02)
[2022-12-16] MEDS ORDERED: fentaNYL citrate PF 100 MCG/2 ML VIAL ONE (13:28)
[2022-12-16] MEDS ORDERED: GLYCOPYRROLATE 0.2 MG/ML VIAL ONE (13:38)
[2022-12-16] MEDS ORDERED: NEOSTIGMINE METHYLSULFATE 1 MG/ML 10ML VIAL ONE (13:38)
[2022-12-16] MEDS ORDERED: PHENYLEPHRINE HCL 10 MG/ML VIAL ONE (14:03)
--- NOTE | 2022-12-16 15:01 | Operative Report ---
Post Operative Report Pre & Post Diagnosis Operation Date: 12/16/22 11:00 Pre-Op Diagnosis: Left Shoulder glenohumeral joint osteoarthritis, Biceps Tendinopathy Post-Op Diagnosis: Left Shoulder glenohumeral joint osteoarthritis, Biceps Tendinopathy I identified the patient and participated in the time-out.: Yes Procedure Operation Date: 12/16/22 11:00 Actual Procedures p Left Total Shoulder Arthroplasty, Biceps Tenodesis(Left) - Andrade Beckham MD Surgeon Andrade Beckham MD Fur Cutter Toi GOMEZ Estimated Blood Loss 75 Findings Consistent with Post-Op Diagnosis Specimens Humeral head Drains 2 Hemovac Anesthesia Type General Regional Complications none Disposition Disposition: Recovery Room Indications 72-year-old female with chronic progressive osteoarthritis and left shoulder failed conservative management. MRI demonstrates intact rotator cuff type a glenoid wear and biceps tendinopathy tenosynovitis. Description of Procedure The patient was taken to the operating room and anesthetized under a general and regional block anesthesia. A towel roll was placed under the medial border of the scapula of the left shoulder. The patient's head was placed on a foam headrest and protective eyewear was placed and the extremities were well padded. The arm was draped free in order to manipulate the shoulder as necessary. The shoulder exam demonstrated 120 degrees forward flexion 90 degrees abduction 30 degrees external rotation. The shoulder was sterilely prepped and draped in the usual sterile fashion. An anterior deltopectoral approach was performed. A longitudinal incision was made in the interval. The skin was incised sharply and subcutaneous tissues dissected down to the fascia. The cephalic vein was identified and retracted laterally with the deltoid. Any crossing veins were tied off with silk ties and divided. The cephalic vein was friable and had some bleeding so had to tie portions of it off. The clavipectoral fascia was divided at the lateral margin of the conjoined tendon and divided up to the level of the coracoacromial ligament which was preserved. The upper 1 cm of the pectoralis was released for inferior exposure. The biceps tendon findings demonstrated marked fluid collection around the biceps tendon with chronic tenosynovitis and proximal whining and tendinopathy intra-articularly. The rotator cuff tendon findings demonstrated intact rotator cuff. The circumflex vessels were identified and tied off with silk ties and divided laterally. The fibers and subscapularis were split longitudinally at the level of the circumflex vessels down to the capsule and then reflected off the inferior capsule using a Kitner elevator. The axillary nerve was identified with a tug test and protected with a blunt Eula retractor. The rotator interval was opened up and extended down to the glenoid. The biceps tendon was identified and tenodesed to the pectoralis tendon with [id number] #2 FiberWire sutures in the proximal biceps was resected. The subscapularis tendon was taken down with a trans- tendinous incision leaving a cuff of tissue for repair on the lesser tuberosity. The incision was carried down to the tendon and the capsule and a #1 Vicryl suture was placed into the free end of the subscapularis tendon. The capsule was subperiosteally dissected off the inferior neck of the humerus exposing the humeral osteophytes which demonstrated moderately large humeral osteophytes. The osteophytes were excised with an artist chisel and a rongeur. The capsular release along the inferior neck of the humerus was completed. The humerus was then retracted posterior to the glenoid with a Fukuda retractor. The remainder of the biceps tendon and labrum was resected. The glenoid findings demonstrated large osteophytes anteriorly and calcified labrum anteriorly and a very large posterior superior osteophyte and also there was a subcoracoid loose body which was removed. All of these large osteophytes removed with rongeur and osteotomes.. I did an anterior inferior and posterior inferior release with electrocautery on bone and a Parks elevator with the axillary nerve continuing to be protected with the blunt Hohmann retractor inferiorly. When the releases were completed and the humeral head was exposed with some extension and external rotation and in anatomic head cut was made using the oscillating saw. The Tornier ascend Flex PTC total shoulder arthroplasty was used including the Cortiloc glenoid component. Attention was first taken to preparation of the humeral shaft. A centralizing awl was used followed by broaches up to the appropriate templated size. The trial broach was left in place and a cut protector was placed. The humerus was then retracted posterior to the glenoid using a Bankart retractor anteriorly and blunt Eula and posterior Tornier glenoid retractor. A central drill hole was made into the glenoid. The glenoid was sized for a size medium 30 radius Cortiloc component. The glenoid was reamed and the central drill widened and the guide for the 3 peripheral peg holes was placed in the peg holes were drilled and a trial component was placed with a tight fit. The trial was removed and the glenoid was irrigated with pulsatile lavage antibiotic solution and the drill holes were dried and packed with epinephrine-soaked tampons for hemostasis. The Palacos G cement was vacuum mixed. The final component was cemented into position and held in position with pressure until the cement cured. A humeral head trial was placed. A trial reduction was performed and the shoulder was stable. The trial was removed and the humerus and canal were irrigated with pulsed saline solution. 3 drill holes were made into the hard bone in the bicipital groove lateral to the lesser tuberosity and 3 #5 FiberWire transosseous sutures were placed for repair of the subscapularis. After further irrigation of the canal and the final components were assembled. The final components were the Synflex 5 B standard length stem assembled to the 50 x 19 high offset humeral head.. The implant was then impacted into the humerus with a tight press-fit. The humerus was reduced to the glenoid and stability verified. The subscapularis was repaired with the #5 FiberWire sutures in a Maurilio-Smith suture technique and lateral row fixation with [id number] #2 FiberWire in the soft tissue. The rotator interval was closed and maximal external rotation. The pectoralis was then closed with [id number] #2 FiberWire suture. The sutures were passed through the biceps tendon as well to reinforce the biceps tenodesis. Range of motion was assessed and repair was secure through 140 degrees of flexion 90 degrees abduction and 60 degrees of external rotation without tension on repair. 2 Hemovac drains were placed. The deltopectoral interval was closed with [id number]-[id number] #1 Vicryl sutures. The subcutaneous tissues were closed with interrupted 2-0 Vicryl and the skin was closed with osmel and a sterile dressing was applied. The patient tolerated the procedure well. Toi GOMEZ, my physician hygiene assistant, assisted in soft tissue retraction instrument management suture management and assisted in the subcutaneous and skin closure and will participate in the postoperative care the patient. I attest to the content of the Intraoperative Record and any orders documented therein. Any exceptions are noted below.
--- NOTE | 2022-12-16 15:18 | Anesthesiology Progress Note ---
Date of Service December 16, 2022 Anesthesia Post Procedure Vital Signs Vital Signs: Temp Pulse Pulse Resp BP Pulse Ox O2 Del Method 12/16/22 15:15 89 18 110/64 95 Room Air 12/16/22 15:05 91 H 16 107/63 95 Oxymask 12/16/22 14:55 36.0 C L 103 H 18 108/70 95 Oxymask 12/16/22 09:15 36.9 C 72 18 122/78 95 Room Air O2 Flow Rate 12/16/22 15:15 12/16/22 15:05 6 12/16/22 14:55 6 12/16/22 09:15 Transfer of Care Handoff Completed per policy Notes Mental Status: alert / awake / arousable Patient Amnestic to Procedure: Yes Nausea / Vomiting: adequately controlled Pain: adequately controlled Airway Patency, RR, SpO2: stable & adequate BP & HR: stable & adequate Hydration State: stable & adequate Anesthetic Complications: no major complications apparent
--- NOTE | 2022-12-16 15:41 | XRay Report ---
XR shoulder LT min 2V routine CLINICAL HISTORY: Post shoulder surgery TECHNIQUE: 3 views of the left shoulder were obtained. Comparison: Comparison is made to chest radiograph 11/19/2022 FINDINGS: Patient is status post shoulder arthroplasty with expected postsurgical changes including soft tissue swelling and subcutaneous emphysema. No periarticular lucency or hardware fracture is seen. IMPRESSION: Expected postoperative appearance status post placement of shoulder arthroplasty. ACT 112: Negative or not required by law. Electronically signed by: Anderson Ramirez M.D. 12/16/2022 3:39 PM
[2022-12-16] MEDS ORDERED: SODIUM CHLORIDE 0.9% 1000ML 1,000 ML IV SCH (15:45)
[2022-12-16] MEDS ORDERED: CETIRIZINE HCL 10 MG TABLET PO PRN (15:45)
[2022-12-16] MEDS ORDERED: FAMOTIDINE 20 MG TAB PO PRN (15:45)
[2022-12-16] MEDS ORDERED: METOCLOPRAMIDE HCL INJ 5 MG/ML 2 ML VIAL IV PRN (15:45)
[2022-12-16] MEDS ORDERED: HYDROmorphone INJ 0.5 MG/0.5 ML SYR IV PRN (15:45)
[2022-12-16] MEDS ORDERED: bisacodyL 10 MG SUPP PR PRN (15:45)
[2022-12-16] MEDS ORDERED: MAGNESIUM HYDROXIDE SUSP 30 ML UDC PO PRN (15:45)
[2022-12-16] MEDS ORDERED: oxyCODONE HCL IR 5 MG TAB (IMMEDIATE RELEASE) PO PRN (15:45)
--- NOTE | 2022-12-16 16:34 | Hospitalist Consultation ---
Date of Consultation December 16, 2022 Assessment & Plan (1) Primary osteoarthritis, left shoulder: VTE/Pain/bowel management per primary orthopedic team (2) Hypothyroid: Continue levothyroxine (3) Hyperlipidemia: Continue atorvastatin (4) Postoperative hypoxia: Encouraged use of incentive spirometer (5) GERD (gastroesophageal reflux disease): Use famotidine MAIA while in the hospital Plan Thank you for the consult. Medical team will review patient with AM labs. History of Present Illness Reason for Consultation: Post op management Attending Physician: Andrade Beckham MD History of Present Illness Jaimee Rice is a 72 year old female POD#0 left total shoulder arthroplasty. Estimated blood loss 75ml. No acute concerns or questions post operatively. She reports normally having a low BP and no dizziness or lightheadedness post operatively. Allergies Allergy/AdvReac Type Severity Reaction Status Date / Time Ilevilf-VZH-IuS Reductase Allergy MYALGIAS/JOINT Verified 12/16/22 08:57 Inhibitor PAIN WITH [Rhllzyl-Pkh-Otf Reductase STATIN Inhibitor] (UNSURE WHICH ONE) Home Medications Medication Instructions Recorded Confirmed Type atorvastatin 10 mg tablet 10 mg PO HS 11/10/18 12/16/22 History calcium carbonate 600 mg calcium 600 mg PO QPM 11/10/18 12/16/22 History (1,500 mg) tablet (Calcium) levothyroxine 75 mcg tablet 75 mcg PO UD 11/10/18 12/16/22 History multivitamin 1 tab PO QPM 11/10/18 12/16/22 History omega 6-pnf-atf-fish oil 1,000 mg 1 cap PO QPM 11/10/18 12/16/22 History (120 mg-180 mg) capsule (Fish Oil) ascorbic acid (vitamin C) 500 mg 500 mg PO QAM 11/12/22 12/16/22 History tablet (Vitamin C) cetirizine 10 mg tablet (Zyrtec) 10 mg PO DAILY PRN allergies 11/12/22 12/16/22 History famotidine 20 mg tablet 20 mg PO DAILY PRN Acid Reflux 11/12/22 12/16/22 History Patient History Medical History (Updated 12/17/22 @ 06:00 by Gordon Montiel MD) GERD (gastroesophageal reflux disease) CONTROLLED Hx of migraines Hx of seasonal allergies Hyperlipidemia Hypothyroidism Osteoarthritis Surgical History History of ankle surgery RT History of D&C History of tooth extraction History of total left knee replacement History of total replacement of right shoulder joint History of tubal ligation Hx of colonoscopy Family History Son Family history of diabetes mellitus Mother Family history of diabetes mellitus Grandfather (Maternal) Family history of diabetes mellitus Social History Smoking Status: Former smoker Smoking End Date: 2009; Second Hand Exposure: No; Do You Dip or Chew Tobacco: No; Tobacco Cessation Education Requested by Patient: No Hx Alcohol Use: Yes Alcohol type: beer Hx Substance Use: No Preferred Language: Azeri Communication Ability: Effective Student Admissions Clerk Required: No Beliefs That Will Affect Care: None marital status: Current Living Situation: Spouse and Family Other Information That Helps Us Care for You: No Feels Safe at Home: Yes Safety Concerns: Feels Safe At This Time Assistive Devices: Glasses Review of Systems Review of Systems: All systems reviewed & are unremarkable except as noted in HPI & below Physical Exam Constitutional: WD/WN, vitals as above Respiratory: normal respiratory effort, lungs clear to auscultation Cardiovascular: RRR, no murmur, no edema Gastrointestinal (Abdomen): normal bowel sounds, soft, nontender, no hepatosplenomegaly Skin: no rashes, warm and dry Psychiatric: A+Ox3, euthymic affect Results & Data Results & Data Vital Signs (Past 12 Hours) Vital Signs Temp Pulse Pulse Resp BP Pulse Ox O2 Del Method 12/16/22 16:27 Nasal Cannula 12/16/22 16:15 36.4 C L 91 H 18 97/59 L 91 Nasal Cannula 12/16/22 15:46 36.4 C L 86 18 112/67 94 Nasal Cannula 12/16/22 15:25 36.4 C L 88 18 109/64 94 Nasal Cannula 12/16/22 15:15 89 18 110/64 95 Room Air 12/16/22 15:05 91 H 16 107/63 95 Oxymask 12/16/22 14:55 36.0 C L 103 H 18 108/70 95 Oxymask 12/16/22 09:15 36.9 C 72 18 122/78 95 Room Air O2 Flow Rate 12/16/22 16:27 2 12/16/22 16:15 2 12/16/22 15:46 2 12/16/22 15:25 2 12/16/22 15:15 12/16/22 15:05 6 12/16/22 14:55 6 12/16/22 09:15 Diagnostic Findings XR shoulder LT min 2V routine CLINICAL HISTORY: Post shoulder surgery TECHNIQUE: 3 views of the left shoulder were obtained. Comparison: Comparison is made to chest radiograph 11/19/2022 FINDINGS: Patient is status post shoulder arthroplasty with expected postsurgical changes including soft tissue swelling and subcutaneous emphysema. No periarticular lucency or hardware fracture is seen. IMPRESSION: Expected postoperative appearance status post placement of shoulder arthroplasty. PG Care Time/CCT Total # of Minutes Spent Total Time Spent with Patient: Total time spent is greater than 50% in coordination of care (as documented) at patient's floor/unit and/or counseling patient: Coding Level of Care Code 97249 IN/OBS CONSULT LVL 3,45M Diagnoses Primary osteoarthritis, left shoulder M19.012 Hypothyroid E03.9 Hyperlipidemia E78.5 Postoperative hypoxia R09.02; Z98.890 GERD (gastroesophageal reflux disease) K21.9
[2022-12-16] MEDS ORDERED: CALCIUM CARBONATE 1250MG TAB PO SCH (21:00)
[2022-12-16] MEDS ORDERED: SENNA 8.6 MG TAB PO SCH (21:00)
[2022-12-16] MEDS ORDERED: ATORVASTATIN 10 MG TAB PO SCH (21:00)
[2022-12-16] MEDS ORDERED: MULTIVITAMIN TAB PO SCH (21:00)
[2022-12-16] MEDS: DOCUSATE SODIUM 100 MG CAP PO SCH (21:10)
[2022-12-16] MEDS: ACETAMINOPHEN 500 MG TAB PO SCH (21:10)
[2022-12-16] MEDS: ceFAZolin 2000MG 2,000 MG/15 ML SYR IV SCH (21:11)
[2022-12-17] MEDS: ceFAZolin 2000MG 2,000 MG/15 ML SYR IV SCH (05:40)
[2022-12-17] MEDS: ACETAMINOPHEN 500 MG TAB PO SCH (05:40)
[2022-12-17 06:19] LABS: Basophils # (auto) 0.01 K/uL (0-0.2); Basophils % (auto) 0.1 %; Hematocrit (blood only) 39.6 % (37.0-47.0); Hemoglobin 13.9 g/dl (12.0-16.0); Immature Granulocytes # (auto) 0.07 K/uL (0.01-0.20); Immature Granulocytes % (auto) 0.5 %; Lymphocytes # (auto) 1.07 K/uL (1.2-3.4); Lymphocytes % (auto) 7.6 %; Mean Corpuscular Hemoglobin 31.7 pg (25.0-34.0); Mean Corpuscular Hgb Conc 35.1 g/dL (32.0-36.0); Mean Corpuscular Volume 90.4 fL (80.0-100.0); Mean Platelet Volume 9.9 fL (9.4-12.4); Monocytes # (auto) 0.75 K/uL (0.11-0.59); Monocytes % (auto) 5.3 %; Neutrophils % (auto) 86.5 %; Platelet Count 283 K/uL (130-400); RDW Coefficient of Variation 12.8 % (11.5-14.5); RDW Standard Deviation 42.4 fL (36.4-46.3); Red Blood Count 4.38 M/uL (4.20-5.40)
[2022-12-17] MEDS ORDERED: LEVOTHYROXINE SODIUM 75 MCG TABLET PO SCH (06:30)
[2022-12-17 06:51] LABS: BUN Creatinine Ratio 16.8 (10-20); Calcium 8.7 mg/dl (8.6-10.3); Creatinine Clr Calc Pharmacy 59.8 ml/min; Est GFR (African American) 69.4 ml/min; Est GFR (Non-African American) 59.8 ml/min; Potassium 4.2 mmol/L (3.5-5.1)
--- NOTE | 2022-12-17 07:51 | Orthopedic Progress Note ---
Date of Service December 17, 2022 Assessment & Plan (1) Primary osteoarthritis, left shoulder: Plan: Postop day #1 left total shoulder arthroplasty -PT/OT per protocol -DVT prophylaxis: SCDs -Pain management as written -AM labs: Mild leukocytosis likely reactive due to surgical stress versus perioperative steroids. Sodium at 135 this morning. She is asymptomatic. Hemoglobin 13.9 from 14.8 preop. -Discharge planning: Plan on discharge home with pending outpatient physical therapy. Plan on discharge home today. Admission and Anticipated Discharge Date Admission Date: December 16, 2022 Subjective Patient is postop day #1 left total shoulder arthroplasty. She is doing well this morning. She has no discomfort. She denies chest pain, shortness of breath, dizziness, nausea/vomiting/diarrhea. Review of Systems Review of Systems: All systems reviewed & are unremarkable except as noted in Subjective Physical Exam Physical Exam: Left shoulder: Dressing is clean, dry, intact. Sling in place. Hemovac on suction. Fingers are mobile. Has mild weakness with conciliator strength and some decreased wrist extension likely residual from nerve block. Otherwise neurovascular status and sensation is grossly intact. Constitutional: WD/WN, vitals as above Results & Data Vital Signs (Past 12 Hours) Vital Signs Temp Pulse Resp BP Pulse Ox O2 Del Method O2 Flow Rate 12/17/22 07:19 36.7 C 88 16 106/73 94 Room Air 12/17/22 03:08 36.9 C 73 16 98/61 L 93 Nasal Cannula 2.0 12/16/22 20:25 Nasal Cannula 2 12/16/22 23:08 97/62 L 12/16/22 21:53 36.7 C 87 16 96/60 L 94 Nasal Cannula 2.0 Laboratory Results Lab Results 12/16/22 12/17/22 12/17/22 Range/Units Unknown 05:47 05:47 WBC 14.10 H (4.8-10.8) K/ul RBC 4.38 (4.20-5.40) M/uL Hgb 13.9 (12.0-16.0) g/dl Hct 39.6 (37.0-47.0) % MCV 90.4 (80.0-100.0) fL MCH 31.7 (25.0-34.0) pg MCHC 35.1 (32.0-36.0) g/dL RDW Std Deviation 42.4 (36.4-46.3) fL RDW Coeff of Bing 12.8 (11.5-14.5) % Plt Count 283 (130-400) K/uL MPV 9.9 (9.4-12.4) fL Immature Gran % (Auto) 0.5 % Neut % (Auto) 86.5 % Lymph % (Auto) 7.6 % Bracken % (Auto) 5.3 % Eos % (Auto) 0.0 % Baso % (Auto) 0.1 % Neut # (Auto) 12.20 H (1.40-6.50) K/uL Lymph # (Auto) 1.07 L (1.2-3.4) K/uL Bracken # (Auto) 0.75 H (0.11-0.59) K/uL Eos # (Auto) 0.00 (0-0.50) K/uL Baso # (Auto) 0.01 (0-0.2) K/uL Immature Gran # (Auto) 0.07 (0.01-0.20) K/uL Sodium 135 L (136-145) mmol/L Potassium 4.2 (3.5-5.1) mmol/L Chloride 104 (98-107) mmol/L Carbon Dioxide 24 (21-32) mmol/L Anion Gap 7 (3-11) BUN 16 (6-23) mg/dl Creatinine 0.95 (0.6-1.2) mg/dl Est Cr Clr Drug Dosing 59.8 ml/min Est GFR ( Amer) 69.4 ml/min Est GFR (Non-Af Amer) 59.8 ml/min BUN/Creatinine Ratio 16.8 (10-20) Glucose 131 H (70-99(Fasting)) mg/dl Calcium 8.7 (8.6-10.3) mg/dl SARS-CoV-2, RNA, NAAT NEGATIVE (NEGATIVE)
[2022-12-17] MEDS: DOCUSATE SODIUM 100 MG CAP PO SCH (08:16)
[2022-12-17] MEDS ORDERED: MULTIVITAMIN TAB PO SCH (09:00)
[2022-12-17] MEDS ORDERED: ASCORBIC ACID 500 MG TAB PO SCH (09:00)
[2022-12-17] MEDS ORDERED: FAMOTIDINE 20 MG TAB PO SCH (09:00)
--- NOTE | 2022-12-17 09:53 | Hospitalist Progress Note ---
Date of Service December 17, 2022 Assessment & Plan (1) Primary osteoarthritis, left shoulder: Plan: POD#1 - VTE/Pain/bowel management per primary orthopedic team - Hemovac mgmt per orthopedics (2) Hypothyroid: Plan: - Continue levothyroxine (3) Hyperlipidemia: Plan: - Continue atorvastatin (4) Postoperative hypoxia: Plan: - Encouraged use of incentive spirometer - Transient and resolved, currently 94% on room air w/o dyspnea or cough (5) GERD (gastroesophageal reflux disease): Plan: - Use famotidine MAIA while in the hospital - can resume PRN upon d/c Plan No further recommendations for this patient, stable for discharge from medicine standpoint, will sign off. Please contact if any acute needs should arise while patient remains in house. Thank you for allowing us to participate in the care of your patient. Plan d/w Dr. Singleton. Admission and Anticipated Discharge Date Admission Date: December 16, 2022 Supervising Physician Co-Signing Physician Notes The patient was not seen by me. The chart was reviewed. The case was discussed with JASON Khan. Agree with assessment and plan Subjective Patient was seen on daily rounds this morning. She reports no complaints/concerns. She notes that her shoulder pain is adequately controlled. No dyspnea, chest pain, n/v/d, f/c, headache, or gu symptoms. Physical Exam Physical Exam: GENERAL: 72 yo well-developed, well-nourished F. AAOx4. NAD. LUNGS: Clear to auscultation bilaterally w/o W/R/R. CARDIOVASCULAR: Regular rate and rhythm ABDOMEN: Soft, non-tender and non-distended. BS normoactive x 4 quad. EXTREMITIES: No edema. Peripheral pulses +2/4. L shoulder dressed, hemovac present. NV intact. No edema. Results & Data Results & Data Vital Signs (Past 12 Hours) Vital Signs Temp Pulse Resp BP Pulse Ox O2 Del Method O2 Flow Rate 12/17/22 07:19 36.7 C 88 16 106/73 94 Room Air 12/17/22 03:08 36.9 C 73 16 98/61 L 93 Nasal Cannula 2.0 12/16/22 23:08 97/62 L 12/16/22 21:53 36.7 C 87 16 96/60 L 94 Nasal Cannula 2.0 Laboratory Results 12/17/22 05:47 12/17/22 05:47 PG Care Time/CCT Total # of Minutes Spent Total Time Spent with Patient: Total time spent is greater than 50% in coordination of care (as documented) at patient's floor/unit and/or counseling patient: Coding Level of Care Code 20722 SUB INP/OBS CARE 2/35MIN Diagnoses Primary osteoarthritis, left shoulder M19.012 Hypothyroid E03.9 Hyperlipidemia E78.5 Postoperative hypoxia R09.02; Z98.890 GERD (gastroesophageal reflux disease) K21.9
[2022-12-17] MEDS ORDERED: OMEGA-3 (PURIFIED FISH OIL) 1 GM CAP PO SCH (21:00)
[2022-12-18] MEDS ORDERED: LEVOTHYROXINE SODIUM 75 MCG TABLET PO SCH (06:30)
--- NOTE | 2022-12-22 12:09 | Discharge Summary ---
Date of Service December 22, 2022 Admission HPI Per Admitting Provider 72-year-old female with past medical history significant for hypertension, hypothyroidism, GERD who presents with ongoing left shoulder pain. Pain is interfering with her daily activities. She has failed conservative measures. She would like to proceed with surgical intervention. Patient denies headaches, sweats, fevers, chills, double vision, blurred vision, cough, sore throat, dysphagia, chest pain, sob, wheezing, n/v/d/c, numbness, tingling, fatigue, urinary symptoms, mood disorders. ROS positive for Left shoulder pain and stiffness. Admission Exam Per Admitting Provider Constitutional: well developed and well nourished; no acute distress Eyes: PERRL, conjunctivae normal, anicteric sclerae ENMT: external ear and nose normal, oropharynx normal Neck: trachea midline, no thyromegaly Respiratory: normal respiratory effort, lungs clear to auscultation Cardiovascular: RRR, no murmur, no edema Musculoskeletal: Left shoulder: Strength is normal. Tenderness anterior aspect of her shoulder over the anterior glenoid. Positive impingement signs. Range of motion: External rotation to 45 degrees, forward flexion to 70 degrees, abduction to 70 degrees. Skin: no rashes, warm and dry Neurologic: patellar DTR's 2+ bilat, sensation intact Psychiatric: A+Ox3, euthymic affect Principal Diagnosis Left shoulder osteoarthritis Discharge Exam Left shoulder: Dressing is clean, dry, intact. Sling in place. Hemovac on suction. Fingers are mobile. Has mild weakness with industrial analyst strength and some decreased wrist extension likely residual from nerve block. Otherwise neurovascular status and sensation is grossly intact. Constitutional WD/WN, vitals as above Discharge Data Allergies Allergy/AdvReac Type Severity Reaction Status Date / Time Bxhqpba-IEG-QwW Reductase Allergy MYALGIAS/JOINT Verified 12/16/22 08:57 Inhibitor PAIN WITH [Efgoymn-Tvt-Fjo Reductase STATIN Inhibitor] (UNSURE WHICH ONE) Consultations 12/10/22 16:06 Consult Hospitalist Routine Procedures Performed Operation Date: 12/16/22 11:00 Actual Procedures p Left Total Shoulder Arthroplasty, Biceps Tenodesis(Left) - Andrade Beckham MD Ordered Studies 12/16/22 05:00 US - OR guided needle placemen Routine Hospital Course (1) Primary osteoarthritis, left shoulder: Postop day #1 left total shoulder arthroplasty -PT/OT per protocol -DVT prophylaxis: SCDs -Pain management as written -AM labs: Mild leukocytosis likely reactive due to surgical stress versus perioperative steroids. Sodium at 135 this morning. She is asymptomatic. Hemoglobin 13.9 from 14.8 preop. -Discharge planning: Plan on discharge home with pending outpatient physical therapy. Plan on discharge home today. Lab Results 12/16/22 12/17/22 12/17/22 Range/Units Unknown 05:47 05:47 WBC 14.10 H (4.8-10.8) K/ul RBC 4.38 (4.20-5.40) M/uL Hgb 13.9 (12.0-16.0) g/dl Hct 39.6 (37.0-47.0) % MCV 90.4 (80.0-100.0) fL MCH 31.7 (25.0-34.0) pg MCHC 35.1 (32.0-36.0) g/dL RDW Std Deviation 42.4 (36.4-46.3) fL RDW Coeff of Bing 12.8 (11.5-14.5) % Plt Count 283 (130-400) K/uL MPV 9.9 (9.4-12.4) fL Immature Gran % (Auto) 0.5 % Neut % (Auto) 86.5 % Lymph % (Auto) 7.6 % Ponce % (Auto) 5.3 % Eos % (Auto) 0.0 % Baso % (Auto) 0.1 % Neut # (Auto) 12.20 H (1.40-6.50) K/uL Lymph # (Auto) 1.07 L (1.2-3.4) K/uL Ponce # (Auto) 0.75 H (0.11-0.59) K/uL Eos # (Auto) 0.00 (0-0.50) K/uL Baso # (Auto) 0.01 (0-0.2) K/uL Immature Gran # (Auto) 0.07 (0.01-0.20) K/uL Sodium 135 L (136-145) mmol/L Potassium 4.2 (3.5-5.1) mmol/L Chloride 104 (98-107) mmol/L Carbon Dioxide 24 (21-32) mmol/L Anion Gap 7 (3-11) BUN 16 (6-23) mg/dl Creatinine 0.95 (0.6-1.2) mg/dl Est Cr Clr Drug Dosing 59.8 ml/min Est GFR ( Amer) 69.4 ml/min Est GFR (Non-Af Amer) 59.8 ml/min BUN/Creatinine Ratio 16.8 (10-20) Glucose 131 H (70-99(Fasting)) mg/dl Calcium 8.7 (8.6-10.3) mg/dl SARS-CoV-2, RNA, NAAT NEGATIVE (NEGATIVE) Total Time Total Time Spent Total Time Spent (In Minutes): 20 Discharge Plan Discharge Items Patient Disposition: Home - Self-Care Reason For Visit: POST OP Discharge Diagnosis: Left shoulder osteoarthritis Activity: Per Instructions section Non-emergency contact: Surgeon Call non-emergency contact if: you have any medication questions, your pain is not controlled, your pain is concerning for you, you have a fever, your temperature is above 101, your wound has increased redness and your wound has increased drainage Follow-up/Referrals: Sekou Jean [Primary Care Provider] - 12/31/22 2:00 pm Diet: Regular Addtl Attending Provider Instructions: ACTIVITY RECOMMENDATIONS: SELF CARE INSTRUCTIONS AFTER TOTAL SHOULDER ARTHROPLASTY A. You may do daily exercises as taught in physical therapy while in hospital. No lifting with the operative arm. Please schedule your outpatient physical therapy appointment to begin within 2-3 days after leaving the hospital. Specific restrictions will be written on your physical therapy prescription that is provided to you. B. You are to wear your sling/immobilizer at all times EXCEPT when performing your daily exercises, participating in physical therapy and for hygiene purpose s. C. You may perform dry, daily dressing changes. Please keep your incision covered. You may shower 48 hours after surgery. Do not apply soap or any ointment/lotions directly over incision. Do not soak incision in bath tub/swimming pool. D. You may use ice as needed to operative shoulder. SPECIAL CARE INSTRUCTIONS: MEDICATION INSTRUCTIONS: VERY IMPORTANT TO READ AND REVIEW A. There are a few signs you need to watch for after you are home. Call [facility] at [phone] if you experience any of the followin. Increased severe shoulder pain. Some pain is expected especially when you exercise. 2. Increased swelling in you shoulder or arm; pain or swelling in either upper extremity. 3. Any fluid drainage from the incision. 4. Shortness of breath or chest pain. B. Please call [facility] at [phone] if you have any questions or concerns about your operation or recovery. C. Call your physician if: 1. Temperature is greater than 101 degrees (F). 2. Pain is not relieved by prescribed pain medications. 3. Increase drainage or redness from incision. 4. Unanswered questions or concerns. FOLLOW UP VISIT: Please call [facility] at [phone] to schedule a follow up appointment with Dr. Beckham or his PA in 12-14 days from your surgery date. Stand-Alone Forms: My [employer], Smoking Cessation Medications and DC Order Prescriptions: New acetaminophen [Tylenol Extra Strength] 500 mg Tablet 1,000 mg PO Q8 Qty: 60 0RF tramadol 50 mg tablet 50 - 100 mg PO .Q4h-6h MDD 6 PRN (Reason: pain) Qty: 30 0RF Continued multivitamin Tablet 1 tab PO QPM atorvastatin 10 mg Tablet 10 mg PO HS levothyroxine 75 mcg Tablet 75 mcg PO UD Rx Instructions: MWF - 2 TAB PO, T,TH,SAT,SUN - 1 TAB calcium carbonate [Calcium 600] 600 mg calcium (1,500 mg) Tablet 600 mg PO QPM omega 4-yvv-ijs-fish oil [Fish Oil] 1,000 mg (120 mg-180 mg) Capsule 1 cap PO QPM cetirizine [Zyrtec] 10 mg Tablet 10 mg PO DAILY PRN (Reason: allergies) famotidine 20 mg Tablet 20 mg PO DAILY PRN (Reason: Acid Reflux) ascorbic acid (vitamin C) [Vitamin C] 500 mg Tablet 500 mg PO QAM Discharge Orders: Discharge Order (Routine); Ordered 12/17/22 Ordered By: Сергей Harkins/Other Patient Handouts: DVT Post Op Prevention, Total Shoulder Replacement Surgery Admission Data Admit Date/Time: 12/16/22 15:04 Attending Provider: Andrade Beckham Admit Provider: Andrade Beckham Primary Care Provider: Sekou Jean Other Providers: Gordon Montiel ; Gordon Thornton Other Interventions: Discharge Summary Assessment (RN) Last Done: 12/17/22 09:12
== END 2022-12-17 12:31 | disposition home or self-care (01) ==
LOC: ASU 08:42 → 3E 08:42